=== PATIENT | female | born 1940 | race Caucasian/White ===

== ENCOUNTER → 2017-12-27 14:28 | Outpatient (CLI) | payer MEDICARE, SELFPAY ==
--- NOTE | 2017-12-27 | DI.RAD.S_ITS ---
PROCEDURE: XR CHEST 2V INDICATIONS: 77 year-old female with pneumonia symptoms. TECHNIQUE: 2 views of the chest were acquired. COMPARISON: [facility], , CHEST 2 VIEW, 11/03/2017, 13:03. [facility], CR, CHEST 2 VIEW, 04/30/2017, 14:47. [facility], CR, XR CHEST 1VW (PORTABLE), 08/29/2016, 12:28. FINDINGS: Surgical changes and devices: None. Lungs and pleura: No pleural effusions or pneumothorax. Lungs are now clear. Mediastinum: Large paraesophageal hiatal hernia is again noted. Heart size is normal. Bones and chest wall: No suspicious bony abnormalities. There is lumbar spine levoscoliosis. Soft tissues appear unremarkable. IMPRESSION: No acute cardiopulmonary disease. Large retrocardiac hiatal hernia as before. Dictated by: Kenyon Mckenna M.D. on 12/27/2017 at 14:52 Approved by: Kenyon Mckenna M.D. on 12/27/2017 at 14:53
== END ==
PROVIDERS: PCP Family Medicine; Visit Provider Family Medicine
DX: J18.9 Pneumonia, unspecified organism (principal); K44.9 Diaphragmatic hernia without obstruction or gangrene
CPT/HCPCS: 71046

== ENCOUNTER → 2019-03-17 10:05 | Outpatient (CLI) | payer MEDICARE, SELFPAY | PROVIDERS: PCP Family Medicine; Visit Provider Family Medicine | DX: S81.802A Unspecified open wound, left lower leg, initial encounter (principal); S80.12XA Contusion of left lower leg, initial encounter; Z79.02 Long term (current) use of antithrombotics/antiplatelets; G89.18 Other acute postprocedural pain; I25.2 Old myocardial infarction | CPT/HCPCS: 11043; 99203; 99212 ==

== ENCOUNTER → 2019-03-21 13:01 | Outpatient (CLI) | payer MEDICARE, SELFPAY | PROVIDERS: PCP Family Medicine; Visit Provider Family Medicine | DX: S81.802A Unspecified open wound, left lower leg, initial encounter (principal); Z79.02 Long term (current) use of antithrombotics/antiplatelets | CPT/HCPCS: 11042; 97607 ==

== ENCOUNTER 2019-03-22 02:07 | Emergency (ER) | payer MEDICARE, SELFPAY ==
[2019-03-22 02:13] VITALS: BP 167/75; PULSE 95; RESP 16; TEMP 36.5; O2SAT 94; BMI 27.3
--- NOTE | 2019-03-22 02:42 | ED.WOUNDLAC ---
HPI - Wound/Laceration General Chief Complaint: Wound/Laceration Stated Complaint: has wound care pump left leg, has problem Time Seen by Provider: 03/22/19 02:14 Source: patient Mode of arrival: ambulatory Limitations: no limitations History of Present Illness HPI narrative: Patient is 79-year-old female who presents with wound VAC concern. She says at midnight she noticed that the pump itself was filled with blood. She has a wound VAC on her left leg about a month ago she fell and injured her left leg hitting it on a stair. She is followed closely with wound care in [place]/she has no significant however redness swelling fever or pain. Wound vacs appears to be working. Paperwork says if filled with blood needs to be evaluated Related Data Allergies Allergy/AdvReac Type Severity Reaction Status Date / Time No Known Drug Allergies Allergy Unknown Unverified 11/03/17 11:50 prednisone AdvReac Mild JITTERY Unverified 11/03/17 11:50 FROM STEROIDS Review of Systems Review of Systems GENERAL: Denies chills,fever HEENT: Denies throat pain RESPIRATORY: Denies dyspnea, cough, wheezing CARDIOVASCULAR: Denies chest pain, palpitations GASTROINTESTINAL: Denies nausea, vomiting MUSCULOSKELETAL: Denies extremity pain, injury SKIN: No rash, no laceration, no pruritus NEUROLOGIC: Denies weakness, dizziness, headache, numbness 8 point review of systems is negative except for those stated above and HPI PFSH Medical History Hypertension (Acute) Social History (Updated 03/22/19 @ 02:47 by Polly Brown DO) Smoking Status: Never smoker substance use type: does not use Social History Smoking Status: Never smoker substance use type: does not use Exam Initial Vital Signs Initial Vital Signs: Vital Signs Temperature 97.7 F 03/22/19 02:13 Pulse Rate 95 H 03/22/19 02:13 Respiratory Rate 16 03/22/19 02:13 Blood Pressure 167/75 H 03/22/19 02:13 Pulse Oximetry 94 03/22/19 02:13 GENERAL: Well-appearing, well-nourished and in no acute distress. CARDIOVASCULAR: peripheral pulses in tact, cap refill <2 sec RESPIRATORY: No respiratory distress, speaks in full sentences without difficulty EXTREMITIES: Normal range of motion, no clubbing or edema. Neurovascularly intact NEUROLOGICAL: Cranial nerves II through XII grossly intact. Normal gait and speech. SKIN: The left leg wound VAC in place. Wound itself is non erythematous. Tubing does have some blood right at the wound. However as tubing goes up with the liquid becomes clear you can see through the tube. Some blood clots are noted. Course Vital Signs - 8 hr 03/22/19 02:13 Temperature 97.7 F Pulse Rate 95 H Respiratory Rate 16 Blood Pressure 167/75 H Pulse Oximetry 94 MDM - Wound/Laceration MDM Narrative Medical decision making narrative: Patient has a previously scheduled office visit with wound care tomorrow at 3:00 p.m.. At this time I recommend she follow up with them in regards to the wound VAC. Overall wound does not appear infected. Discharge Plan Departure Patient Disposition: Home Clinical Impression: Feared complaint without diagnosis Discharge Date/Time: 03/22/19 02:40 Interventions: ED Discharge Assessment Last Done: 03/22/19 02:40 Instructions: DI with Wound Drains Activity Restrictions/Additional Instructions: *You have been diagnosed with wound VAC encounter *What to do: At this time no significant abnormality noted with wound VAC. There is a small amount blood in the tubing. However the wound is not grossly bleeding. *Continue to take medications as directed *Follow up with your primary care provider in 2-3 days, please call wound care 1st thing in the morning and follow up as previously scheduled and tomorrow afternoon *Return to ER if you should have significant bleeding around the wound, vacuum seal has common done redness pain or any new, worsening or concerning symptoms Referrals: Michael Botello MD [Physician] - Denisa Blackburn MD [Primary Care Provider] -
== END 2019-03-22 02:40 | disposition home or self-care (01) ==
PROVIDERS: Emergency Provider Emergency Medicine; PCP Family Medicine
DX: Z71.1 Person with feared health complaint in whom no diagnosis is made (principal)
CPT/HCPCS: 99282; 99283

== ENCOUNTER → 2019-03-23 14:58 | Outpatient (CLI) | payer MEDICARE, SELFPAY | PROVIDERS: PCP Family Medicine; Visit Provider Family Medicine | DX: S80.812A Abrasion, left lower leg, initial encounter (principal) | CPT/HCPCS: 97607 ==

== ENCOUNTER → 2019-03-28 13:06 | Outpatient (CLI) | payer MEDICARE, SELFPAY | PROVIDERS: PCP Family Medicine; Visit Provider Family Medicine | DX: S81.802A Unspecified open wound, left lower leg, initial encounter (principal); Z79.02 Long term (current) use of antithrombotics/antiplatelets | CPT/HCPCS: 11042 ==

== ENCOUNTER 2019-04-05 13:55 | Emergency (ER) | payer MEDICARE, SELFPAY ==
[2019-04-05 14:08] VITALS: BP 156/77; PULSE 53; RESP 15; TEMP 36.3; O2SAT 97; BMI 27.1
--- NOTE | 2019-04-05 14:56 | ED.WOUNDLAC ---
HPI - Wound/Laceration <ROGER Romero - Last Filed: 04/05/19 21:22> General Chief Complaint: Wound/Laceration Stated Complaint: Open Wound on Left Ankle, Doesn't Look Good Time Seen by Provider: 04/05/19 14:39 Source: patient and family Mode of arrival: ambulatory Limitations: no limitations History of Present Illness HPI narrative: 79-year-old female with a history of a chronic wound to her left lateral ankle that she had last year during a fall. She has had a wound VAC inserted into the wound and was recently removed a week ago. She missed her wound clinic appointment on Wednesday and is concerned that the wound is starting to look a little worse. She states that there is a crust within the wound and was unsure if she should come here because with it. Patient denies any fevers, chills, headache, chest pain, shortness of breath, abdominal pain, worsening erythema, confusion, or other concerning symptoms. Related Data Allergies Allergy/AdvReac Type Severity Reaction Status Date / Time No Known Drug Allergies Allergy Unknown Verified 04/05/19 14:14 prednisone AdvReac Mild JITTERY Verified 04/05/19 14:14 FROM STEROIDS Review of Systems <ROGER Romero - Last Filed: 04/05/19 21:22> Review of Systems Narrative: REVIEW OF SYSTEMS: GENERAL: Denies fever or chills. HENT: Denies head trauma. EYE: Denies double vision or vision loss. CARDIOVASCULAR: Denies syncope. MUSCULOSKELETAL: Denies weakness, or deformities. INTEGUMENTARY: Complains of chronic wound to left ankle, see HPI. NEURO: Denies numbness or tingling. PFSH <ROGER Romero - Last Filed: 04/05/19 21:22> Medical History Hypertension (Acute) Social History Smoking Status: Never smoker substance use type: does not use Social History Smoking Status: Never smoker substance use type: does not use Exam <RGOER Romero - Last Filed: 04/05/19 21:22> Initial Vital Signs Initial Vital Signs: Vital Signs Temperature 97.4 F L 04/05/19 14:08 Pulse Rate 53 L 04/05/19 14:08 Respiratory Rate 15 04/05/19 14:08 Blood Pressure 156/77 H 04/05/19 14:08 Pulse Oximetry 97 04/05/19 14:08 PHYSICAL EXAMINATION: GENERAL: Well groomed, alert, and cooperative. Answers questions promptly and appropriately. Vital signs noted. HENT: Normocephalic, atraumatic. RESPIRATORY: Normal respiratory rate, trachea midline, airway patent. No stridor, nasal flaring or accessory muscle use. MUSCULOSKELETAL: Normal gait and coordination. Equal tone and mass bilaterally. EXTREMITIES: CMS intact. Moves all extremities. SKIN: Warm, dry, soft, appropriate color for ethnicity. 4cm x 4cm annular wound to lateral side of left ankle. This appears very chronic in nature, yellowish crust is noted on the inside of the wound without eschar. No surrounding erythema, no increased temperature, no pus see drainage. NEURO: Alert and Oriented X 3. Good coordination. PSYCH: Appropriate affect and mood. <Desiree Kc MD - Last Filed: 04/06/19 07:12> Initial Vital Signs Initial Vital Signs: Vital Signs Temperature 97.4 F L 04/05/19 14:08 Pulse Rate 53 L 04/05/19 14:08 Respiratory Rate 15 04/05/19 14:08 Blood Pressure 156/77 H 04/05/19 14:08 Pulse Oximetry 97 04/05/19 14:08 Course <ROGER Romero - Last Filed: 04/05/19 21:22> Course Course Narrative: Wound was dressed with bacitracin and gauze. Conversation was had with patient about the importance of wound care follow-up. Orders Ordered: Discontinued Medications Bacitracin (Bacitracin) 1 applic TOP NOW ONE Stop: 04/05/19 15:05 Last Admin: 04/05/19 15:29 Dose: 1 applic Documented by: KBROTEM Vital Signs Vital signs: Vital Signs - 8 hr 04/05/19 14:08 Temperature 97.4 F L Pulse Rate 53 L Respiratory Rate 15 Blood Pressure 156/77 H Pulse Oximetry 97 <Desiree Kc MD - Last Filed: 04/06/19 07:12> Orders Ordered: Discontinued Medications Bacitracin (Bacitracin) 1 applic TOP NOW ONE Stop: 04/05/19 15:05 Last Admin: 04/05/19 15:29 Dose: 1 applic Documented by: FEDERICO Vital Signs Vital signs: Vital Signs - 8 hr 04/05/19 14:08 Temperature 97.4 F L Pulse Rate 53 L Respiratory Rate 15 Blood Pressure 156/77 H Pulse Oximetry 97 [facility] - Wound/Laceration <ROGER Romero - Last Filed: 04/05/19 21:22> Medical Records Attestation: I reviewed the patient's medical records. Lab Data Attestation: I reviewed the patient's lab results. [facility] Narrative Medical decision making narrative: This is a chronic wound that patient has been treated for for over a year. While the recently remove the wound VAC, there appears to be no sign of infection such as erythema, but he discharge, or increased warmth. The wound bed has changed to a to a crusty yellow without his eschar, I suspect that changing color concerned the patient. Patient has a scheduled wound care appointment within the coming week. Strict return precautions given and follow-up instructions discussed. Discharge Plan Departure Patient Disposition: Home Clinical Impression: Chronic wound of extremity Discharge Date/Time: 04/05/19 15:36 Activity Restrictions/Additional Instructions: Thank you for entrusting me with your care today. As discussed, does not appear that your wound is infected. Part of the changes your seeing his because the wound is no longer connected to wound VAC. Please follow-up with the wound care clinic as planned as soon as possible. Monitor for signs of infection such as pus, increasing redness, increasing heat, fevers, chills, dizziness, chest pain, shortness of breath, or syncope-if these symptoms occur please return to the emergency department immediately. Referrals: Denisa Blackburn MD [Primary Care Provider] -
[2019-04-05] MEDS: BACITRACIN OINT 0.9 GM PCKT 1 APPLIC TOP (15:29)
--- NOTE | 2019-04-05 15:33 | PC.NURSE ---
Pt has a chronic wound that she is being treated at wound care for. Pt concerned that it didn't look good. No drainage noted.
== END 2019-04-05 15:36 | disposition home or self-care (01) ==
PROVIDERS: Emergency Provider Nurse Practitioner; PCP Family Medicine
DX: S91.002A Unspecified open wound, left ankle, initial encounter (principal)
CPT/HCPCS: 99283

== ENCOUNTER → 2019-04-11 13:34 | Outpatient (CLI) | payer MEDICARE, SELFPAY | PROVIDERS: PCP Family Medicine; Visit Provider Family Medicine | DX: S81.802A Unspecified open wound, left lower leg, initial encounter (principal); Z79.02 Long term (current) use of antithrombotics/antiplatelets | CPT/HCPCS: 11042 ==

== ENCOUNTER → 2019-04-18 13:15 | Outpatient (CLI) | payer MEDICARE, SELFPAY | PROVIDERS: PCP Family Medicine; Visit Provider Family Medicine | DX: S81.802A Unspecified open wound, left lower leg, initial encounter (principal) | CPT/HCPCS: 15271; 29580; 87070; 87075; 87205; 99213; Q4187 ==

== ENCOUNTER → 2019-04-20 15:10 | Outpatient (CLI) | payer MEDICARE, SELFPAY | PROVIDERS: PCP Family Medicine; Visit Provider Family Medicine | DX: R60.0 Localized edema (principal) | CPT/HCPCS: 29580; 99213 ==

== ENCOUNTER → 2019-04-25 11:46 | Outpatient (CLI) | payer MEDICARE, SELFPAY | PROVIDERS: PCP Family Medicine; Visit Provider Family Medicine | DX: S81.802A Unspecified open wound, left lower leg, initial encounter (principal); Z79.02 Long term (current) use of antithrombotics/antiplatelets | CPT/HCPCS: 11042 ==

== ENCOUNTER → 2019-05-02 13:36 | Outpatient (CLI) | payer MEDICARE, SELFPAY | PROVIDERS: PCP Family Medicine; Visit Provider Family Medicine | DX: I87.2 Venous insufficiency (chronic) (peripheral) (principal); L97.828 Non-pressure chronic ulcer of other part of left lower leg with other specified severity | CPT/HCPCS: 11042 ==

== ENCOUNTER → 2019-05-12 13:27 | Outpatient (CLI) | payer MEDICARE, SELFPAY | PROVIDERS: PCP Family Medicine; Visit Provider Family Medicine | DX: S81.802A Unspecified open wound, left lower leg, initial encounter (principal); R60.0 Localized edema | CPT/HCPCS: 99213 ==

== ENCOUNTER → 2019-05-19 14:25 | Outpatient (CLI) | payer MEDICARE, SELFPAY | PROVIDERS: PCP Family Medicine; Visit Provider Family Medicine | DX: I87.2 Venous insufficiency (chronic) (peripheral) (principal); R60.0 Localized edema; Z79.02 Long term (current) use of antithrombotics/antiplatelets; L97.821 Non-pressure chronic ulcer of other part of left lower leg limited to breakdown of skin | CPT/HCPCS: 11042 ==

== ENCOUNTER → 2019-05-26 16:13 | Outpatient (CLI) | payer MEDICARE, SELFPAY | PROVIDERS: PCP Family Medicine; Visit Provider Family Medicine | DX: I87.2 Venous insufficiency (chronic) (peripheral) (principal); L97.829 Non-pressure chronic ulcer of other part of left lower leg with unspecified severity; Z79.02 Long term (current) use of antithrombotics/antiplatelets | CPT/HCPCS: 97597 ==

== ENCOUNTER → 2019-06-02 12:55 | Outpatient (CLI) | payer MEDICARE, SELFPAY | PROVIDERS: PCP Family Medicine; Visit Provider Family Medicine | DX: I87.2 Venous insufficiency (chronic) (peripheral) (principal); Z79.02 Long term (current) use of antithrombotics/antiplatelets; L97.829 Non-pressure chronic ulcer of other part of left lower leg with unspecified severity | CPT/HCPCS: 97597 ==

== ENCOUNTER → 2019-06-09 13:07 | Outpatient (CLI) | payer MEDICARE, SELFPAY | PROVIDERS: PCP Family Medicine; Visit Provider Family Medicine | DX: I87.2 Venous insufficiency (chronic) (peripheral) (principal); R60.0 Localized edema; Z79.02 Long term (current) use of antithrombotics/antiplatelets; L97.821 Non-pressure chronic ulcer of other part of left lower leg limited to breakdown of skin | CPT/HCPCS: 97597 ==

== ENCOUNTER → 2019-06-16 13:09 | Outpatient (CLI) | payer MEDICARE, SELFPAY | PROVIDERS: PCP Family Medicine; Visit Provider Family Medicine | DX: I87.2 Venous insufficiency (chronic) (peripheral) (principal); L97.821 Non-pressure chronic ulcer of other part of left lower leg limited to breakdown of skin; R60.0 Localized edema; Z79.02 Long term (current) use of antithrombotics/antiplatelets | CPT/HCPCS: 97597 ==

== ENCOUNTER → 2019-06-30 14:00 | Outpatient (CLI) | payer MEDICARE, SELFPAY | PROVIDERS: PCP Family Medicine; Visit Provider Family Medicine | DX: I87.2 Venous insufficiency (chronic) (peripheral) (principal); L97.821 Non-pressure chronic ulcer of other part of left lower leg limited to breakdown of skin; Z79.02 Long term (current) use of antithrombotics/antiplatelets | CPT/HCPCS: 97597 ==

== ENCOUNTER → 2019-07-06 14:06 | Outpatient (CLI) | payer MEDICARE, SELFPAY | PROVIDERS: PCP Family Medicine; Visit Provider Family Medicine | DX: I87.2 Venous insufficiency (chronic) (peripheral) (principal); L97.829 Non-pressure chronic ulcer of other part of left lower leg with unspecified severity; Z79.02 Long term (current) use of antithrombotics/antiplatelets; D53.9 Nutritional anemia, unspecified | CPT/HCPCS: 99212 ==

== ENCOUNTER 2019-12-25 15:49 | Inpatient (IN) | payer MEDICARE, SELFPAY ==
[2019-12-25] VITALS (16 sets, daily range): BP systolic 143–225; BP diastolic 66–109; PULSE 52–87; RESP 15–18; TEMP 35.9–37.1; O2SAT 95–99; BMI 25.0
--- NOTE | 2019-12-25 15:54 | DI.CT.S_ITS ---
PROCEDURE: CT HEAD/BRAIN WO CON INDICATIONS: HTN emergency TECHNIQUE: Noncontrast 4.5 mm thick angled axial sections acquired from the foramen magnum to the vertex, with coronal and sagittal reformats. For radiation dose reduction, the following was used: automated exposure control, adjustment of mA and/or kV according to patient size. COMPARISON: [facility], CT, HEAD WITHOUT CONTRAST, 12/12/2012, 10:02. FINDINGS: Image quality: Excellent. CSF spaces: Basal cisterns are patent. No extra-axial fluid collections. The ventricles are symmetric in size and shape. Brain: No intracranial bleeds or masses. There is cerebral volume loss for age, with resultant ventricular and sulcal prominence. There are periventricular and deep white matter chronic small vessel ischemic changes. There is intracranial internal carotid artery atherosclerosis. Skull and face: Calvarium and visualized facial bones appear intact, without suspicious lesions. Sinuses: Visualized sinuses and mastoids are clear. IMPRESSION: Moderate microvascular atherosclerotic change in the deep white matter regions are, no sign of hemorrhage or stroke. Dictated by: Bakari Helms M.D. on 12/25/2019 at 16:24 Approved by: Bakari Helms M.D. on 12/25/2019 at 16:25
--- NOTE | 2019-12-25 15:54 | DI.RAD.S_ITS ---
PROCEDURE: XR CHEST 1V INDICATIONS: HTN Emergency TECHNIQUE: One view of the chest was acquired. COMPARISON: [facility], CR, XR CHEST 2V, 12/27/2017, 14:31. FINDINGS: Surgical changes and devices: None. Lungs and pleura: Interstitial prominence is identified within the perihilar regions, which has developed in the interim. There is mild elevation of the right diaphragm, which is similar to the prior study. No pneumothorax or large effusion is identified. Mediastinum: Mediastinal contours appear normal. Heart size is normal. Soft tissue density within the retrocardiac region probably represents a hiatal hernia. Bones and chest wall: No suspicious bony lesions. Degenerative changes of the shoulders and spine are not adequately characterize. S-shaped scoliosis of the thoracic spine is noted. Overlying soft tissues appear unremarkable. IMPRESSION: 1. Developing pulmonary edema versus less likely interstitial pneumonia. Please correlate clinically. 2. Hiatal hernia. Dictated by: Geoff Dumont M.D. on 12/25/2019 at 15:32 Approved by: Geoff Dumont M.D. on 12/25/2019 at 15:40
[2019-12-25 16:19] LABS: Add Manual Diff / Slide Review NO; Basophils Absolute Auto 100 /uL (0-100); Eosinophils Absolute Auto 200 /uL (0-450); Eosinophils Percent Auto 2.6 % (2-4); Hematocrit 41.4 % (36-46); Hemoglobin 14.3 g/dL (12.0-16.0); Lymphocytes Absolute Auto 1600 /uL (1100-4500); Lymphocytes Percent Auto 18.1 % (25-40); Mean Corpuscular HGB Conc 34.5 % (30-36); Mean Corpuscular Hemoglobin 36.2 PG (26-34); Mean Corpuscular Volume 104.9 fL (80-100); Monocytes Absolute Auto 700 /uL (0-900); Neutrophils Absolute Auto 6200 /uL (1500-7000); Neutrophils Percent Auto 70.3 % (50-75); Platelet Count 230 X10^3/uL (150-400); Red Blood Cell Count 3.95 X10^6/uL (4.0-5.2); Red Cell Distribution Width 13.2 % (11.6-14.8); White Blood Cell Count 8.8 X10^3/uL (4.5-11.0)
[2019-12-25 16:40] LABS: Alanine Aminotransferase 22 IU/L (<35); Albumin 4.5 g/dL (3.5-5.0); Albumin Globulin Ratio 1.3 (1.0-2.8); Alkaline Phosphatase 92 U/L (38-126); Aspartate Aminotransferase 40 IU/L (14-36); Bilirubin Total 0.8 mg/dL (0.2-1.3); Blood Urea Nitrogen 25 mg/dL (7-17); Calcium 9.6 mg/dL (8.4-10.2); Carbon Dioxide 25 mmol/L (22-32); Chloride 108 mmol/L (98-107); Creatine Kinase 28 U/L (30-135); Estimated Glomerular Filt Rate > 60.0 mL/min (>60); Globulin 3.4 g/dL (1.7-4.1); Glucose 86 mg/dL (80-110); Lipase 94 U/L (23-300); Sodium 140 mmol/L (137-145); Total Protein 7.9 g/dL (6.3-8.2)
--- NOTE | 2019-12-25 16:40 | ED_ITS ---
HPI - General Adult General Chief complaint: Hypertension Stated complaint: RUTHIE HIGH BLOOD PRESSURE Time Seen by Provider: 12/25/19 15:53 Source: patient Mode of arrival: Ambulatory Limitations: no limitations History of Present Illness HPI narrative: 79-year-old female nonsmoker with history of hypertension, hypert hyroid and GERD presents with her in the chief complaint severely elevated blood pressure with severe headache, fatigue and some nausea over the past few days. She had been seen and evaluated by her primary care provider this afternoon and was sent here for treatment and possible admission. She denies any chest pain or shortness of breath. She denies any focal neurologic findings such as numbness, tingling or weakness. She denies any significant medication or dietary change Onset (ago): day(s) Location: head Quality: aching Pain Consistency: constant Relieving factors: none Exacerbating factors: none Associated symptoms: headaches and nausea/vomiting Treatments prior to arrival: none Related Data Home Medications Medication Instructions Recorded Confirmed clopidogrel [Plavix] 75 mg PO BEDTIME 12/25/19 12/25/19 esomeprazole magnesium [Nexium] 20 mg PO BID 12/25/19 12/25/19 levothyroxine 75 mcg PO BEDTIME 12/25/19 12/25/19 lisinopril 20 mg PO BID 12/25/19 12/25/19 nefazodone 50 mg PO BID 12/25/19 12/25/19 potassium chloride 10 meq PO QAM 12/25/19 12/25/19 Allergies Allergy/AdvReac Type Severity Reaction Status Date / Time niacin Allergy Severe Flushing Verified 12/25/19 16:50 prednisone AdvReac Mild JITTERY Verified 12/25/19 16:50 FROM STEROIDS Review of Systems Constitutional Constitutional: Denies chills, Denies fatigue, Denies fever(s), Denies frequent falls, Reports headache(s), Denies lethargy and Denies weakness Eyes Eyes: Denies change in vision, Denies eye discharge, Denies irritation and Denies loss of vision ENT Ears, Nose, Mouth, and Throat: Denies change in voice, Denies dizziness, Reports headache(s), Denies neck pain, Denies sore throat and Denies throat swelling Cardiovascular Cardiovascular: Denies chest pain, Denies irregular heart rhythm, Denies lightheadedness, Denies palpitations, Denies dyspnea, Denies dyspnea on exertion and Denies orthopnea Respiratory Respiratory: Denies cough, Denies dyspnea, Denies dyspnea on exertion and Denies wheezing Gastrointestinal Gastrointestinal: Denies abdominal pain, Denies change in bowel habits, Denies diarrhea, Reports nausea and Denies vomiting Genitourinary Genitourinary: Denies hematuria, Denies flank pain, Denies urinary incontinence and Denies urinary urgency Musculoskeletal Musculoskeletal: Denies back pain, Denies muscle weakness, Denies neck pain, Denies numbness and Denies tingling Integumentary/Breasts Skin/Breast: Denies pruritus, Denies erythema, Denies rash and Denies wounds Neurologic Neurologic: Denies behavioral changes, Denies confusion, Denies dizziness, Denies frequent falls, Reports headache(s), Denies loss of vision, Denies numbness, Denies tingling and Denies weakness Psychiatric Psychiatric: Denies anxiety, Denies behavioral changes, Denies confusion, Denies depression, Denies homicidal ideation and Denies suicidal ideation Endocrine Endocrine: Denies fatigue, Denies flushing and Denies palpitations Hematologic/Lymphatic Hematologic/Lymphatic: Denies easy bruising Allergic/Immunologic Allergic/Immunologic: Denies urticaria, Denies throat swelling and Denies wheezing Patient History Medical History Hypertension (Acute) Social History Smoking Status: Never smoker substance use type: does not use Smoking Status: Never smoker alcohol intake frequency: holidays/special occasions only Substance Use Type: does not use Exam Narrative Exam Narrative: GENERAL: [79] year old patient appears stated age. Well- nourished, well-developed patient, in mild distress. HEAD: Atraumatic. Normocephalic. EYES: Pupils equal round and reactive. Extraocular motions intact. No scleral icterus. No injection or drainage. ENT: Nose without bleeding, purulent drainage. Throat without erythema, tonsillar hypertrophy or exudate. Airway patent. NECK: Trachea midline. Non tender CARDIOVASCULAR: Regular rate and rhythm without murmurs, gallops, or rubs. RESPIRATORY: Clear to auscultation. Breath sounds equal bilaterally. No wheezes, rales, or rhonchi. GASTROINTESTINAL: Abdomen soft, non-tender, nondistended. EXTREMITIES: No edema or joint tenderness. BACK: Nontender without deformity or crepitance. No flank tenderness. NEURO: AOx3. SKIN: No rash or erythema of visible areas NIH Stroke Scale 1a. LOC: Patient is alert and keenly responsive (0) 1b. LOC Questions: Patient answers both LOC questions accurately (0) 1c. LOC Commands: Patient performs both tasks correctly (0) 2. Best Gaze: Normal (0) 3. Visual: No visual loss (0) 4. Facial palsy: Normal symmetrical movements (0) 5. Motor arm: No drift (0) 6. Motor leg: No drift (0) 7. Limb ataxia: Absent (0) 8. Sensory: Normal (0) 9. Best language: No aphasia; normal (0) 10. Dysarthria: Normal (0) 11. Extinction and inattention: No abnormality (0) NIHSS: 0 Initial Vital Signs Initial Vital Signs: Vital Signs Temperature 96.6 F L 12/25/19 15:53 Pulse Rate 63 12/25/19 15:53 Respiratory Rate 18 12/25/19 15:53 Blood Pressure 222/109 H 12/25/19 15:53 Pulse Oximetry 97 12/25/19 15:53 Course Course Course Narrative: Patient presents with significantly elevated blood pressure 220s over 109. Full course of labs and imaging ordered, labetalol 10 mg given and blood pressure continues to rise with symptoms worsening. At this point macro to pain drip ordered at 5 which reduces blood pressure into the mid 170s with resultant improvement in symptoms. Orders Ordered: ED Orders 12/25/19 15:54 CT head/brain wo con Stat XR chest 1V Stat EKG-12 Lead Stat 12/25/19 16:12 Complete Blood Count AUTO DIFF Stat Comprehensive Metabolic Panel Stat Lipase Stat Troponin & CK Cardiac Panel Stat Sodium Chloride (Normal Saline 0.9%) 1,000 mls @ 150 mls/hr IV CONT JENNY Last Admin: 12/25/19 16:47 Dose: 150 mls/hr Documented by: PATT Nicardipine HCl 25 mg/ Sodium (Chloride) 250 mls @ 50 mls/hr IV TITRATE JENNY; Protocol Last Admin: 12/25/19 17:39 Dose: 5 mg/hr, 50 mls/hr Documented by: PATT Discontinued Medications Acetaminophen (Tylenol) 975 mg PO NOW ONE Stop: 12/25/19 18:00 Last Admin: 12/25/19 18:07 Dose: 975 mg Documented by: PATT Labetalol HCl (Trandate) 10 mg IV NOW ONE Stop: 12/25/19 16:04 Last Admin: 12/25/19 16:47 Dose: 10 mg Documented by: PATT Vital Signs Vital signs: Vital Signs - 8 hr 12/25/19 15:53 12/25/19 16:05 12/25/19 16:45 Temperature 96.6 F L Pulse Rate 63 53 L 58 L Respiratory Rate 18 18 17 Blood Pressure 222/109 H Blood Pressure [Right Arm] 212/91 H 225/91 H Pulse Oximetry 97 98 98 12/25/19 16:47 12/25/19 17:00 12/25/19 17:27 Temperature Pulse Rate 52 L 57 L 58 L Respiratory Rate 15 Blood Pressure 207/98 H 194/84 H Blood Pressure [Right Arm] 201/85 H Pulse Oximetry 96 12/25/19 17:30 12/25/19 17:45 Temperature Pulse Rate 61 87 Respiratory Rate 18 16 Blood Pressure Blood Pressure [Right Arm] 189/84 H 183/75 H Pulse Oximetry 95 98 Medical Decision Making Lab Data Result diagrams: 12/25/19 16:12 12/25/19 16:12 Labs: Lab Results 12/25/19 12/25/19 Range/Units 16:12 16:12 WBC 8.8 (4.5-11.0) X10^3/uL RBC 3.95 L (4.0-5.2) X10^6/uL Hgb 14.3 (12.0-16.0) g/dL Hct 41.4 (36-46) % MCV 104.9 H (80-100) fL MCH 36.2 H (26-34) PG MCHC 34.5 (30-36) % RDW 13.2 (11.6-14.8) % Plt Count 230 (150-400) X10^3/uL Neut % (Auto) 70.3 (50-75) % Lymph % (Auto) 18.1 L (25-40) % [place] % (Auto) 8.0 (3-14) % Eos % (Auto) 2.6 (2-4) % Baso % (Auto) 1.0 (0-2) % Neut # (Auto) 6200 (9046-9178) /uL Lymph # (Auto) 1600 (6445-5552) /uL Barnwell # (Auto) 700 (0-900) /uL Eos # (Auto) 200 (0-450) /uL Baso # (Auto) 100 (0-100) /uL Sodium 140 (137-145) mmol/L Potassium 5.0 (3.4-5.1) mmol/L Chloride 108 H (98-107) mmol/L Carbon Dioxide 25 (22-32) mmol/L BUN 25 H (7-17) mg/dL Creatinine 0.49 L (0.52-1.04) mg/dL Estimated GFR > 60.0 (>60) mL/min BUN/Creatinine Ratio 51.0 H (6-22) Glucose 86 (80-110) mg/dL Calcium 9.6 (8.4-10.2) mg/dL Total Bilirubin 0.8 (0.2-1.3) mg/dL AST 40 H (14-36) IU/L ALT 22 (<35) IU/L Alkaline Phosphatase 92 (38-126) U/L Total Creatine Kinase 28 L (30-135) U/L CK-MB (CK-2) TNP CK-MB (CK-2) Rel Index TNP Troponin I 0.013 (0.01-0.034) ng/mL Total Protein 7.9 (6.3-8.2) g/dL Albumin 4.5 (3.5-5.0) g/dL Globulin 3.4 (1.7-4.1) g/dL Albumin/Globulin Ratio 1.3 (1.0-2.8) Lipase 94 (23-300) U/L Imaging Data CT scan - head: Radiologist's Impression: Brandi Crandall Con[place] 79 F [address] [address] [address] Scan Report Signed Patient: Brandi Crandall RMR#: [id number] : 1940Acct:[id number] Age/Sex: 79 / FDate of Service: 12/25/19 Loc: ED Accession Number: [id number] Procedure: CT head/brain wo con Ordering Provider: Jaiden Page D.O. PROCEDURE: CT HEAD/BRAIN WO CON INDICATIONS: HTN emergency TECHNIQUE: Noncontrast 4.5 mm thick angled axial sections acquired from the foramen magnum to the vertex, with coronal and sagittal reformats. For radiation dose reduction, the following was used: automated exposure control, adjustment of mA and/or kV according to patient size. COMPARISON: [facility], CT, HEAD WITHOUT CONTRAST, 12/12/2012, 10:02. FINDINGS: Image quality: Excellent. CSF spaces: Basal cisterns are patent. No extra-axial fluid collections. The ventricles are symmetric in size and shape. Brain: No intracranial bleeds or masses. There is cerebral volume loss for age, with resultant ventricular and sulcal prominence. There are periventricular and deep white matter chronic small vessel ischemic changes. There is intracranial internal carotid artery atherosclerosis. Skull and face: Calvarium and visualized facial bones appear intact, without suspicious lesions. Sinuses: Visualized sinuses and mastoids are clear. IMPRESSION: Moderate microvascular atherosclerotic change in the deep white matter regions are, no sign of hemorrhage or stroke. Dictated by: Bakari Helms M.D. on 12/25/2019 at 16:24 MDM Narrative Medical decision making narrative: Patient has hypertensive encephalopathy and not only did not improve with labetalol but actually worsened. Neck cardiac P drip ordered, patient will require hospitalization and our ICU for ongoing management and stabilization of her condition. Dr. Rhodes happy to accept Discharge Plan Departure Patient Disposition: Admitted As Inpatient Clinical Impression: Hypertension Qualifiers: Hypertension type: essential hypertension Qualified Code(s): I10 - Essential (primary) hypertension Admit Date/Time: 12/25/19 18:04 Admit Provider: Xavi Rhodes
[2019-12-25 16:41] LABS: HEMOLYSIS 96 (0-50)
[2019-12-25] MEDS: SODIUM CHLORIDE 0.9% 1,000 ML 150 ML IV (16:47)
[2019-12-25] MEDS: LABETALOL 20 MG/4 ML SYRINGE 10 MG IV (16:47)
[2019-12-25 16:51] LABS: Troponin I 0.013 ng/mL (0.01-0.034)
[2019-12-25] MEDS: NICARDIPINE 25 MG in SODIUM CHLORIDE 0.9% 240 ML 50 ML IV ×2 (17:39→22:24)
[2019-12-25] MEDS: ACETAMINOPHEN 325 MG TABLET 975 MG PO (18:07)
--- NOTE | 2019-12-25 19:49 | PM.HP.1 ---
History of Present Illness History of Present Illness Date Patient Seen: 12/25/19 Time Patient Seen: 19:49 Date of Onset of Symptoms: 12/04/19 Chief complaint: RUTHIE HIGH BLOOD PRESSURE Narrative: Patient is a 79-year-old white female patient of Dr. Blackburn who I am cross covering for who presented to her clinic today with headache. Apparently she has not been feeling well for around 3 weeks. She is not sure when she checked her blood pressure last. She noted about 3 weeks ago that she started having fatigue and just did not feel well. Has a hard time describing exactly what that means. She did not have a severe headache but had a low-grade headache. No fevers or chills. No chest pain. Has not had any dyspnea with exertion. Patient was seen by Dr. [facility] and apparently was diagnosed with a sinusitis. Patient really feels like she was having a hard time expressing how she has felt. Since that time she really has not felt any better. She is getting an increased headache. Bobby frontal. No visual symptoms. No nausea or vomiting. No numbness tingling or motor changes. Patient was seen in clinic today and found to have a blood pressure with diastolic 125 and systolic of 200+. Due to the fact that she was having symptoms and elevated blood pressure she was sent to the emergency room. She had been tried on labetalol and was unresponsive with continued significantly elevated blood pressure. That time she was started on a calcium channel heide drip and responded well. Has no other significant changes. Patient has a history of coronary artery disease. But has had no other significant changes or complaints. Otherwise is doing well. She has not had any previous history of stroke or other changes. Patient's past medical history is significant for: Hypertension, hyperlipidemia, depression, hypokalemia, hypothyroidism Past surgical history: Total hysterectomy with BSO secondary to bleeding, tonsillectomy and adenectomy, right total hip replacement 12/14/2013, carpal tunnel 2009, sinus surgery, vitrectomy x2. Social history. Nonsmoker occasional drinker. Single but in relationship , retired, family nearest is in [facility]. Also has family in [place]. Patient History Medical History Hypertension (Acute) Family & Social History Social History: household members none Prior Living Arrangements House Safety & Behavioral: Feels Safe in Current Yes Environment Been Physically Hurt or No Threatened By a Person Suicidal Ideation Description None Suicide Plan Description No Plan Tobacco & Substance use: Smoking Status Never smoker alcohol intake frequency holiday/special occasion Substance Use Type does not use Meds Home Medications and Allergies Home Medications Medication Instructions Recorded Confirmed Type clopidogrel [Plavix] 75 mg PO BEDTIME 12/25/19 12/25/19 History esomeprazole magnesium [Nexium] 20 mg PO BID 12/25/19 12/25/19 History levothyroxine 75 mcg PO BEDTIME 12/25/19 12/25/19 History lisinopril 20 mg PO BID 12/25/19 12/25/19 History nefazodone 50 mg PO BID 12/25/19 12/25/19 History potassium chloride 10 meq PO QAM 12/25/19 12/25/19 History Allergies Allergy/AdvReac Type Severity Reaction Status Date / Time niacin Allergy Severe Flushing Verified 12/25/19 16:50 prednisone AdvReac Mild JITTERY Verified 12/25/19 16:50 FROM STEROIDS Review of Systems Review of Systems ROS: Yes All systems reviewed with the patient and are negative except as otherwise documented Exam Vital Signs (past 8 hours): - 12/25/19 15:53 12/25/19 16:05 12/25/19 16:45 Temperature 96.6 F L Pulse Rate 63 53 L 58 L Respiratory Rate 18 18 17 Blood Pressure 222/109 H Blood Pressure [Right Arm] 212/91 H 225/91 H Pulse Oximetry 97 98 98 12/25/19 16:47 12/25/19 17:00 12/25/19 17:27 Temperature Pulse Rate 52 L 57 L 58 L Respiratory Rate 15 Blood Pressure 207/98 H 194/84 H Blood Pressure [Right Arm] 201/85 H Pulse Oximetry 96 12/25/19 17:30 12/25/19 17:45 12/25/19 18:09 Temperature Pulse Rate 61 87 74 Respiratory Rate 18 16 18 Blood Pressure Blood Pressure [Right Arm] 189/84 H 183/75 H 172/77 H Pulse Oximetry 95 98 99 12/25/19 18:25 Temperature Pulse Rate 74 Respiratory Rate 18 Blood Pressure Blood Pressure [Right Arm] 175/76 H Pulse Oximetry 98 Oxygen Delivery Method Room Air Narrative Exam Narrative: Alert interactive and smiling female in no acute distress. Tympanic membranes are normal. Pupils are equal small to light. Mucous membranes are moist. Neck supple without adenopathy JVD bruits. Lungs are clear. Heart regular rate and rhythm without murmurs clicks rubs or gallops. Abdomen is soft positive bowel sounds nontender. Extremities without cyanosis clubbing or edema. Patient has good pulses. Neurologic exam shows cranial nerves 2-12 are intact motor is 5/5. Reflexes 2+ and symmetric. [id number]-[id number] and hlpj-[id number] is normal I did not walk her. Psychologically she seems alert appropriate smiling and interactive. Objective Labs Result Diagrams: 12/25/19 16:12 12/25/19 16:12 Labs: Laboratory Results - last 24 hr 12/25/19 12/25/19 16:12 16:12 WBC 8.8 RBC 3.95 L Hgb 14.3 Hct 41.4 MCV 104.9 H MCH 36.2 H MCHC 34.5 RDW 13.2 Plt Count 230 Neut % (Auto) 70.3 Lymph % (Auto) 18.1 L [place] % (Auto) 8.0 Eos % (Auto) 2.6 Baso % (Auto) 1.0 Neut # (Auto) 6200 Lymph # (Auto) 1600 [place] # (Auto) 700 Eos # (Auto) 200 Baso # (Auto) 100 Sodium 140 Potassium 5.0 Chloride 108 H Carbon Dioxide 25 BUN 25 H Creatinine 0.49 L Estimated GFR > 60.0 BUN/Creatinine Ratio 51.0 H Glucose 86 Calcium 9.6 Total Bilirubin 0.8 AST 40 H ALT 22 Alkaline Phosphatase 92 Total Creatine Kinase 28 L CK-MB (CK-2) TNP CK-MB (CK-2) Rel Index TNP Troponin I 0.013 Total Protein 7.9 Albumin 4.5 Globulin 3.4 Albumin/Globulin Ratio 1.3 Lipase 94 Assessment & Plan Assessment & Plan narrative: hypertensive emergency. Blood pressure is significantly elevated with symptoms. Does not appear to have any other significant secondary issues thankfully. At this point is doing well on nicardipine drip. Will continue. Goal 160s to 170s. Will continue this through the night and re-evaluate in a.m.. Hopefully at that point we can wean down and off and start a changed p.o. process. Patient understands goals and questions answered. Headache CT scan is unremarkable. Probably secondary to hypertension. No evidence of neurologic change. Will watch this closely with neurologic checks Q shift and tramadol for pain. Will see how she does.. History of gastritis. Will continue PPI. Hyperlipidemia. Will continue usual statin. History of coronary artery disease appears stable at this time. Normal EKG no symptoms will follow. Code status. Long discussion with patient. She has been full code. Still has some questions but at this point will continue full code status and she can discuss with her usual primary care about possible concerns. Patient is comfortable with this. Disposition. Hopefully will have completely controlled within the next 24-48 hours on oral medicines like to see how she does. 45 minutes spent with patient and coordinating care Quality VTE Deep Vein Thrombosis/Pulmonary Embolism Present on Admission: No
[2019-12-25] MEDS: ROSUVASTATIN 10 MG TABLET 20 MG PO (20:52)
[2019-12-25] MEDS: TRAMADOL 50 MG TABLET PO (20:52)
[2019-12-25] MEDS: PANTOPRAZOLE 20 MG TABLET PO (20:53)
[2019-12-25] MEDS: LEVOTHYROXINE 75 MCG TABLET PO (22:14)
[2019-12-25] MEDS: NEFAZODONE 100 MG TABLET 50 MG PO (22:14)
[2019-12-26] VITALS (17 sets, daily range): BP systolic 123–169; BP diastolic 59–107; PULSE 55–70; RESP 11–24; TEMP 36–36.6; O2SAT 92–97
[2019-12-26] MEDS: TRAMADOL 50 MG TABLET PO ×2 (02:46→10:21)
[2019-12-26 05:11] LABS: BUN Creatinine Ratio 33.3 (6-22); Blood Urea Nitrogen 15 mg/dL (7-17); Calcium 9.1 mg/dL (8.4-10.2); Carbon Dioxide 29 mmol/L (22-32); Chloride 105 mmol/L (98-107); Estimated Glomerular Filt Rate > 60.0 mL/min (>60); Glucose 90 mg/dL (80-110); HEMOLYSIS < 15 (0-50); Potassium 3.4 mmol/L (3.4-5.1); Sodium 138 mmol/L (137-145)
--- NOTE | 2019-12-26 06:42 | PC.NURSE ---
Tobacco Stripper Note-Patient oriented x4, fatigued and c/o headache for which Tramadol was given per prn. Nicardipine gtt infusing at 2.5mg/hr most of the night, BP 140s/70s to 160s/90s, see vital trends. SR/SA, placed on 2L NC to keep O2 >92%, denies dyspnea, but does have intermittent dry cough, lung sounds dim but clear. Up to BSC voiding frequently with urgency, urine is clear yellow, c/o burning and itching will obtain UA if indicated.
--- NOTE | 2019-12-26 08:50 | DI.US.S_ITS ---
PROCEDURE: US RENAL COMPLETE INDICATIONS: HYPERTENSIVE CRISIS TECHNIQUE: Real-time scanning was performed of the kidneys and bladder, with image documentation. COMPARISON: None. FINDINGS: Kidneys: Kidneys are normal in size. Right kidney measures 9.3 cm long; left kidney measures 9.8 cm long. Right renal cortical thickness is 2.2 cm; left renal cortical thickness is 1.5 cm. Renal cortical echotexture is normal. No hydronephrosis or nephrolithiasis. No suspicious solid mass lesions, and there is a simple appearing 3.4 cm right renal cortical cyst. Bladder: Pre-void bladder volume is 101 mL. Miscellaneous: No free pelvic fluid. IMPRESSION: Normal appearance of the kidneys, incidental note is made of a right renal cyst measuring 3.4 cm in maximal dimension. No solid mass involving the kidneys is found. Dictated by: Bakari Helms M.D. on 12/26/2019 at 10:19 Approved by: Bakari Helms M.D. on 12/26/2019 at 10:21
[2019-12-26 09:33] LABS: Bacteria Urine None Seen; RBC Urine None Seen (0-5/HPF); WBC Urine None Seen (0-5/HPF)
[2019-12-26 09:52] LABS: Appearance Urine UA CLEAR; Bilirubin Urine UA NEGATIVE (NEGATIVE); Color Urine UA YELLOW; Glucose Urine UA NEGATIVE (Negative); Ketones Urine UA NEGATIVE (NEGATIVE); Leukocyte Esterase Urine UA NEGATIVE (NEGATIVE); Nitrite Urine UA NEGATIVE (Negative); Occult Blood Urine UA NEGATIVE (Negative); Protein Urine UA NEGATIVE (Negative); Specific Gravity Urine UA 1.015 (1.000-1.035); Urobilinogen Urine UA 0.2 E.U./dL (0.2)
[2019-12-26 10:01] LABS: Culture Indicated Urine Cult Not Indicated; Urine Comments Microscopic Normal
[2019-12-26] MEDS: METOPROLOL ER 25 MG TABLET PO ×2 (10:20→21:11)
[2019-12-26] MEDS: SODIUM CHLORIDE 0.9% FLUSH 10 ML IV ×2 (10:20→22:22)
[2019-12-26] MEDS: CLOPIDOGREL 75 MG TABLET PO (10:20)
[2019-12-26] MEDS: lisinopriL 20 MG TABLET PO ×2 (10:20→21:10)
[2019-12-26] MEDS: PANTOPRAZOLE 20 MG TABLET PO ×2 (10:21→21:12)
[2019-12-26] MEDS: NEFAZODONE 100 MG TABLET 50 MG PO ×2 (10:22→21:10)
[2019-12-26 11:45] LABS: COVID19 -Nasal RAPID Negative (Negative)
--- NOTE | 2019-12-26 12:40 | PT.IIE ---
Current Diagnoses Essential (primary) hypertension (12/25/19) Medical History (Last Reviewed 12/25/19 @ 19:59 by Xavi Rhodes MD) Hypertension (Acute) Physical Therapy Inpatient Evaluation/Re-Eval M1 PT/OT-IP Prior Functional Status Start: 12/26/19 10:05 Freq: NEEDED Status: Active Protocol: Document 12/26/19 12:16 AW (Rec: 12/26/19 12:40 AW [email or web address]) Medical Review Prior Functional Status Medical History Reviewed Yes Communication WNL Mobility and Gait Pt states she is an independent ambulator but uses a SPC occasionally. I should probably use it more. 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 She has a friend and a significant other who help her with shopping and driving to appointment. Social History Household Members none Living Arrangements House Number of Floors (Floors) 3 or More Floors Number of Stairs To Enter/Railing? 3 SARA through garage with bilateral rails. She enters on the main level with living room, kitchen, dining room, guest room, and laundry. She climbs 15 stairs with right rail ascending to her bedroom/ bathroom. She states she rarely goes downstairs to the basement. Home Environment High Toilet,Tub/Shower Home Equipment Straight Cane,Shower Seat with Backrest,Automotive Design Layout Drafter,Grab Bars In Shower Additional Social History Comment Pt has daughters who live in the [facility] area and a son who lives in [place]. She states she is at a crossroads and knows she needs to sell her house. It's too much house for me now. She has considered moving to a jail setting near her daughters. She has also considered moving in with her significant other. M2 PT-IP Current Condition Start: 12/26/19 10:05 Freq: NEEDED Status: Active Protocol: Document 12/26/19 12:16 AW (Rec: 12/26/19 12:40 AW [email or web address]) Physical Therapy Current Condition Current Condition Evaluation Date 12/26/19 Treatment Diagnosis headache, hypertensive emergency, difficulty in walking Onset Date 12/25/19 Precautions Other Precautions Monitor BP M3 PT-IP Subjective Start: 12/26/19 10:05 Freq: NEEDED Status: Active Protocol: Document 12/26/19 12:16 AW (Rec: 12/26/19 12:40 AW [email or web address]) Subjective Physical Therapy Visit Type Type Initial Evaluation Visit Start Time 11:43 Visit Stop Time 12:13 Total Visit Minutes 30 Physical Therapy Visit Comments Patient Comments Pt is willing to participate with PT Patient Goals Pt hopes to return home Therapy Pain Assessment Pain When Pain Assessed At Rest Pain Present Pain Present Pain Reported Location headache Intensity 5 Description Aching,Tightness Pain Behaviors Facial Grimacing,Holding Area Pain Management Techniques Distraction M4 PT-IP Mobility and Gait Start: 12/26/19 10:05 Freq: NEEDED Status: Active Protocol: Document 12/26/19 12:16 AW (Rec: 12/26/19 12:40 AW [email or web address]) PT-Bed Mobility Assessment Supine to Sit Supine to Sit Standby Assistance Scooting Scooting to Edge of Bed Standby Assistance PT-Transfer Assessment Equipment Transfer Assistive Device Gait Belt Orthotic/Prosthetic Devices or Brace: No Transfers Transfer Destination Chair,Toilet Transfer Technique pt ambulated without and with FWW Transfer Ability Level of Assist Standby Assistance,Use of Upper Extremities Comments Mobility Comments Supine BP was 159/74. Pt completed supine to sit SBA with HOB elevated ~20 degrees and sat EOB. She completed sit to stand and ambulated without AD to the toilet where she transferred to and from with use of grab bars for support SBA. She then agreed to ambulate in the halls. After gait assessment, pt returned to the room and transferred to the chair where she was positioned with call light and lunch tray within reach. Pt verbalized agreement to use call light for mobility needs. Gait Assessment Gait Gait Assistance Required: Standby Assistance,Contact Guard Assist Distance (Feet) 120 Assistive Devices Assistive Device None,Gait Belt,Front Wheeled Walker Orthotic/Prosthetic Devices or Brace: No Gait Deviations General Gait Pattern Antalgic,Decreased Stride Length,Decreased Feet Clearance,Flexed Trunk,Wide Based Gait Factors Limiting Gait Function Factors Limiting Gait Function Decreased Activity Tolerance, Decreased Strength,Pain,Poor Balance,Poor Safety Awareness Comments Gait Comments Pt ambulated without AD in the halls requiring SBA to occasional CGA due to unsteadiness. On return to the room, pt trialed gait with FWW which she acknowlegded felt safer to her. With FWW, she required SBA. Pt states she had a R JEVON ~5 years ago and has had recent pain which she attributes to bursitis since injections to the bursa have been effective at managing her pain. Stair Climbing Assessment Comments Stair Climbing Comments Not assessed. PT-Balance Assessment Sitting Balance and Reactions Static Sitting Balance Ability Normal Dynamic Sitting Balance Ability Normal Standing Balance and Reactions Static Standing Balance Ability Good Dynamic Standing Balance Ability Fair Device Used with and without FWW Balance Tests Single Limb Standing 3 sec left; 1 sec right M5 PT-IP Objective Assessments Start: 12/26/19 10:05 Freq: NEEDED Status: Active Protocol: Document 12/26/19 12:16 AW (Rec: 12/26/19 12:40 AW [email or web address]) Orientation Orientation/Cognition Level of Alertness Alert Orientation Name,Day of Week,Place, Situation Language Function Ability No Deficits Noted Safety Awareness Decreased Safety Awareness Memory Description No Deficits Noted Gross Range of Motion Lower Extremity ROM Assessment Within Functional Limits Strength Lower Extremity Strength Assessment Bilaterally Impaired Hip L 4/5; R 3+/5 due to pain Knee B 4/5 Ankle B4+/5 Coordination Assessment Gross Coordination Gross Coordination WNL Sensation Assessment Sensation Gross Sensation WNL Muscle Tone Muscle Tone WNL Yes Other Assessments Other Other Assessments Occulomotor exam revealed difficulty with tracking and with convergence (left eye more affected than right). Pt denied dizziness. M6 PT-IP Treatment Start: 12/26/19 10:05 Freq: NEEDED Status: Active Protocol: Document 12/26/19 12:16 AW (Rec: 12/26/19 12:40 AW [email or web address]) Physical Therapy Treatment Education Education Provided Safety Other Treatments Other Treatment Performed Provided education on role of PT, plan of care, and rationale for selection of assistive device. M7 PT-IP Assessment and Plan Start: 12/26/19 10:05 Freq: NEEDED Status: Active Protocol: Document 12/26/19 12:16 AW (Rec: 12/26/19 12:40 AW [email or web address]) PT Summary Assessment and Plan Potential Rehabilitation Potential Good Status of Condition at Evaluation Evolving Summary Impairments Pain,Strength,Balance,Bed Mobility,Transfers,Gait, Activity Tolerance Assessment Summary Nicole is a 79 yo woman seen for PT evaluation after being admitted with hypertensive emergency (SBP >220). At baseline, she is functionally independent and lives alone. On evaluation, BP was stable 157/74 - 159/74 before and after gait activities. She required SBA for transfers and ambulation with assistive device, CGA for ambulation without AD. Gait was characterized by wide stance and she frequently reached for furniture and gaona to steady herself. Pt would benefit from continued gait assessment and training, possibly with SPC in order to increase her independence and safety. Pt states she was planning to begin outpatient PT just before stay home stay healthy order and that she would be willing to consider starting therapy now. She would benefit from outpatient PT to address balance and gait disturbances . Goals Bed Mobility Goal Independent Transfer Goal Independent,Cane,Front Wheeled Walker Gait Goal Independent,Cane,Front Wheel Walker Gait Distance 200 Other Goals - up/down 15 stairs with R rail ascending independent Days to Meet Goals 3 Frequency of Treatment Frequency Of Treatment Once a Day Treatment Plan Physical Therapy Treatment Plan Bed Mobility Training,Transfer Training,Gait Training, Therapeutic Exercise,Balance Retraining,Discharge Planning, Hot or Cold Pack,Neuromuscular Re-ed,Coordination Retraining Other Recommendations and Next Treatment trial/assess gait with SPC; Focus monitor BP; balance interventions Recommendations To Nursing Amount of Assist Needed 1 Person Assist Discharge Recommendations PT Discharge Recommendations Home with Assistance, Outpatient PT Equipment Needed for Home Before may need FWW if unsafe with Discharge SPC Transportation Needs at Discharge Private Vehicle
--- NOTE | 2019-12-26 14:31 | CM.DANOTE ---
Patient is a 79 year old female who was admitted on 12/25/19 for BP issues. Pt has MCR and [employer] for insurance and her PCP is Dr. Denisa Blackburn. EMR was reviewed. Per MD, pt to be admitted for observation for bp issues and MD initiated discussion regarding pt's current Full Code status and pt declines changing at this time but agreeable with further discussion with PCP after discharge. Per RN, pt has complained of headache but is off the drip for bp issues and was requiring 2L Oxygen but weaning to room air. Per PT, pt lives alone in [place] with Sig Other nearby and pt is independent with ADL's at baseline. Recommending safe d/c back home with assist and outpt PT. SW met briefly bedside with pt as she was very tired and could not stay awake during conversation. Pt confirms that she lives alone with 2 supportive Dtrs/DPOA in [place] and that she has been considering selling her house and moving down by her Dtrs or in with her Sig Other. Pt states her house is too big for just one person. Pt denies any hx of HH but states she went to [facility] back in 2013 after hip surgery and states her preference is to d/c home when stable. Plan: SW to follow tomorrow after further PT to confirm pt safe for d/c home with sig other assist and outpt PT. MOJGAN Perez Discharge Planning/Care Management CM Discharge Assessment Start: 12/26/19 14:29 Freq: Status: Active Protocol: Document 12/26/19 14:29 BF (Rec: 12/26/19 14:31 BF [id number]) Discharge Planning Assessment Assigned Gun Stock Maker MOJGAN Somers DPOA/Assigned Designee Name Zulay Casey Contact Information [phone] Advance Directives? Yes History Provided By Patient,Medical Record Has Patient been admitted in last 30 No days? Prior Living Arrangements House Household Members none Type of transporation used prior to Drives own vehicle admit Independent with ADL's Yes Is patient alert and oriented? Yes Needs Assistance With Home Chores / Shopping Caregiver for Another No Patient/Family Preference OP PT Therapy Comment Likely home Barriers to Discharge No Discharge Plan Home Community Services Physical Therapy Transportation Arrangement Sig other available for transport at d/c Referrals Initiated None needed Review Status In Process Please Provide Date Initial DC 12/26/19 Assessment Was Performed Next Review Type Continued Stay Review
--- NOTE | 2019-12-26 14:41 | OT.IP.EVAL ---
Current Diagnoses Essential (primary) hypertension (12/25/19) Past Medical History (Last Reviewed 12/25/19 @ 19:59 by Xavi Rhodes MD) Hypertension (Acute) Occupational Therapy Inpatient Evaluation/Re-Eval M2 OT-IP Current Condition Start: 12/26/19 14:24 Freq: Status: Active Protocol: Document 12/26/19 12:52 [facility] (Rec: 12/26/19 14:40 [facility] [id number]) Occupational Therapy Current Condition Current Condition Evaluation Date 12/26/19 Treatment Diagnosis HTN, headache. Weight Bearing Status Weight Bearing Status Weight Bear as Tolerated M3 OT- IP Subjective and Pain Start: 12/26/19 14:24 Freq: Status: Active Protocol: Document 12/26/19 12:52 [facility] (Rec: 12/26/19 14:40 [facility] [id number]) OT- Subjective Occupational Therapy Visit Type Type Initial Evaluation Visit Start Time 12:52 Visit Stop Time 13:17 Total Visit Minutes 25 Occupational Therapy Visit Comments Patient Comments Pt agreed to get up to use the bathroom. Patient/Caregiver Goals To go home. OT Pain Assessment Pain When Pain Assessed During Mobility Pain Present Pain Present Pain Reported M4 OT- IP ADL's Start: 12/26/19 14:24 Freq: Status: Active Protocol: Document 12/26/19 12:52 [facility] (Rec: 12/26/19 14:40 [facility] [id number]) OT [id number] Comments OT Self-Feeding Comments Not at meal time. OT ADL-Grooming General Evaluation Grooming Ability Standby Assistance Areas Needing Assistance Retrieving/Set-up of Grooming Items Comments OT Grooming Comments SBA with FWW at the sink. OT ADL-Oral Care General Eval Oral Care Ability Independent OT ADL-Dressing General Eval Lower Body Dressing Ability Contact Guard Assistance Comments OT Dressing Comments CGA for balance while pt able to pull up her brief. OT ADL-Toileting General Evaluation Toileting Ability Standby Assistance OT ADL-Bathing Comments OT Bathing Comments Pt too tired at this time to attempt. M5 OT- IP IADL's Start: 12/26/19 14:24 Freq: Status: Active Protocol: Document 12/26/19 12:52 [facility] (Rec: 12/26/19 14:40 [facility] [id number]) OT-Instrumental Activities of Daily Living Home Safety Awareness Ability to Problem Solve Emergency Able to Problem Solve Situations Medication Management Medication Management No Deficits Identified Money Management Money Management No Deficits Identified Meal Preparation Meal Preparation Comments Pt states mainly just doing frozen meals at this time. College President College President Comments Pt states no longer able to do the cleaning at home. Driving Driving Caregiver Provides Assist Driving Comments Pt's significant other or friends drive pt. M6 OT- IP Functional Cognition Start: 12/26/19 14:24 Freq: Status: Active Protocol: Document 12/26/19 12:52 [facility] (Rec: 12/26/19 14:40 [facility] [id number]) Cognitive Factors Limiting Selfcare Function Cognitive Ability Level of Alertness Alert Patient Orientation Name,Place,Situation Attention Span Ability Capable of Focused Attention, Capable of Sustained Attention Ability to Follow Commands Able to Follow Multi-Step Commands Cognitive Comments Cognitive Assessment Comments No deficits noted at this time , continue to assess pt's cognition. OT- Vision and Hearing OT- Hearing Assessment OT- Hearing Assessment WFL OT- Vision Assessment Visual Acuity Glasses All The Time Vision Assessment Comments Pt states has decreased depth perception and needs to have good lighting throughout the house. M7 OT- IP Mobility and Balance Start: 12/26/19 14:24 Freq: Status: Active Protocol: Document 12/26/19 12:52 [facility] (Rec: 12/26/19 14:40 [facility] [id number]) OT- Bed Mobility Assessment Sit to Supine Sit to Supine Assist Standby Assistance OT-Transfer Assessment Sit to and From Stand Sit to and from Stand Standby Assistance Transfers Transfer Ability Standby Assistance Technique Transfer Destination Bed,Chair Transfer Technique Stand Step Pivot Devices Transfer Assistive Devices Gait Belt,Front Wheeled Walker Comments Mobility Comments Pt SBA with FWW for mobility in the room. OT- Balance Assessment Sitting Balance and Reactions Static Sitting Balance Ability Normal Dynamic Sitting Balance Ability Good Standing Balance and Reactions Static Standing Balance Ability Fair M8 OT- IP Objective Assessments Start: 12/26/19 14:24 Freq: Status: Active Protocol: Document 12/26/19 12:52 [facility] (Rec: 12/26/19 14:40 [facility] [id number]) OT Gross Range of Motion Upper Extremity Range of Motion Assessment Left Impaired OT Strength Upper Extremity Strength Assessment Within Functional Limits M9 OT- IP Assessment and Plan Start: 12/26/19 14:24 Freq: Status: Active Protocol: Document 12/26/19 12:52 [facility] (Rec: 12/26/19 14:40 [facility] [id number]) OT Summary Assessment and Plan Potential Rehabilitation Potential Excellent Analytic Complexity at Evaluation Low Summary OT Impairments Grooming,Dressing,Toileting, Bathing,Toilet Transfers, Shower Transfers,Activity Tolerance Progress Towards Goals Progressing Toward Goals Assessment Summary Pt low complexity and main barrier are steps decreased activity tolerance and dynamic balance and now needing use of FWW for mobility needs. To work with pt for OT regarding suggesting equipment needs, go over energy conservation , and work on increasing for activity tolerance through ADL's. Pt would benefit from increased assist at home and even someone to stay with her pending medical progress. In addition, home health would be beneficial for pt as well. Goals Grooming Goal Independent Dressing Goal Independent Toileting Goal Independent Bathing Goal Independent Toilet Transfer Goal Independent Shower Transfer Goal Independent Patient/Caregiver Education Goal Demonstrate Energy Conservation and Pacing Days to Meet Goals 5 Frequency of Treatment Frequency Of Treatment Once a Day Treatment Plan OT Treatment Plan ADL Training,Functional Mobility,Patient/Family Education,Discharge Planning Other Treatment Recommendations and Next Shower Treatment Focus Discharge Recommendations OT Discharge Recommendations Home with Assistance,Home Health Home Equipment Needs FWW Transportation Needs at Discharge Private Vehicle
[2019-12-26] MEDS: LORazepam 0.5 MG TABLET PO ×2 (15:41→21:16)
--- NOTE | 2019-12-26 18:03 | PM.PN.1 ---
Subjective Subjective Date Patient Seen: 12/26/19 Time Patient Seen: 08:03 Interval history: Patient admitted last night from emergency room with hypertensive crisis with encephalopathy. Patient was placed on our card a Pean drip and this was weaned down and she is almost completely off this. Her blood pressures in the 150s over 70s now. She still is having headache which has been her chief complaint for the last 3 weeks. There is no clear etiology for the hypertension. Patient has longstanding hypertension and has been on metoprolol 25 mg a day which was recently started I believe and lisinopril 20 mg p.o. b.i.d. which she has been on for quite some time. She otherwise has had no other symptoms. She really is not feeling any different today despite her blood pressure coming from a systolic in the low 200s to 150 and a diastolic of 116 now to the 70s. She denies any chest pain or shortness of breath she denies any palpitations lightheadedness or dizziness Patient is well known to me Reviewed workup in the ER and admission H&P Review of systems is negative from above No fever chills Patient does have shoulder pain it has been persistent and worsening she is having neck pain as well she is having pain in the frontal area of her head Exam Vital Signs (past 8 hours): - 12/26/19 10:20 12/26/19 11:34 12/26/19 12:03 Temperature 97.0 F L Pulse Rate 68 68 65 Respiratory Rate 23 Blood Pressure 153/71 H 157/74 H Pulse Oximetry 97 12/26/19 15:15 Temperature 97.3 F L Pulse Rate 61 Respiratory Rate 18 Blood Pressure 156/70 H Pulse Oximetry 92 Oxygen Delivery Method Room Air Oxygen Flow Rate 0 Narrative Exam Narrative: Afebrile vital signs are stable blood pressures improved HEENT: Unremarkable Neck is supple she has tenderness over the trapezius muscles bilaterally at the proximal insertion in the occiputal region Chest: Clear to auscultation without wheezes rhonchi or crackles Cor: Regular rate and rhythm without murmur Abdomen: Positive bowel sounds, soft, nontender Extremities no edema pulses intact Neurologic exam nonfocal Patient clearly has degenerative arthritis shoulders ankles fingers wrists Objective Labs Result Diagrams: 12/25/19 16:12 12/26/19 04:42 Labs: Laboratory Results - last 24 hr 12/26/19 12/26/1920 04:42 07:44 10:40 Sodium 138 Potassium 3.4 D Chloride 105 Carbon Dioxide 29 BUN 15 Creatinine 0.45 L Estimated GFR > 60.0 BUN/Creatinine Ratio 33.3 H Glucose 90 Calcium 9.1 Urine Color Yellow Urine Appearance Clear Urine pH 7.0 Ur Specific [place] 1.015 Urine Protein Negative Urine Glucose (UA) Negative Urine Ketones Negative Urine Occult Blood Negative Urine Nitrate Negative Urine Bilirubin Negative Urine Urobilinogen 0.2 Ur Leukocyte Esterase Negative Urine RBC None seen Urine WBC None seen Urine Bacteria None seen Ur Culture Indicated? Cult not indicated Micro UA Comment Microscopic normal COVID-19 PCR Negative Assessment & Plan Assessment & Plan narrative: 79-year-old female admitted for hypertensive crisis with symptoms including headache. Assessment 1. Hypertensive crisis of unclear etiology now improved without evidence of end-organ damage Plan: Wean off the nicardipine Will increase metoprolol to 25 mg twice daily continue lisinopril 20 mg twice daily Will continue to monitor closely Renal ultrasound Repeat labs in a.m. Assessment 2. Headache of unclear etiology suspect musculoskeletal and tension headache Plan: PT consult Heat Tylenol as needed Give a trial of hydrocodone. Will not prescribe this long-term. Tramadol is not effective last night. Will give a trial of lorazepam for the muscle relaxant aspect. Assessment 3. Hypothyroidism stable Plan: Continue same levothyroxine Assessment 4. Depression not therapeutic Plan: Will continue on and facet own will give lorazepam as needed and will plan for outpatient psychiatric evaluation Assessment 5. History of gastritis with GERD Plan: Will continue with same Nexium Quality VTE Deep Vein Thrombosis/Pulmonary Embolism Present on Admission: No
[2019-12-26] MEDS: HYDROCODONE/ACET 5/325 TABLET 1 TAB PO (18:44)
[2019-12-26] MEDS: ROSUVASTATIN 10 MG TABLET 20 MG PO (21:10)
[2019-12-27] VITALS (9 sets, daily range): BP systolic 159–188; BP diastolic 71–83; PULSE 50–60; RESP 14–20; TEMP 35.8–36.6; O2SAT 93–96
[2019-12-27] MEDS: HYDROCODONE/ACET 5/325 TABLET 1 TAB PO ×3 (00:03→21:34)
[2019-12-27 05:51] LABS: Alanine Aminotransferase 17 IU/L (<35); Albumin 3.7 g/dL (3.5-5.0); Albumin Globulin Ratio 1.3 (1.0-2.8); Alkaline Phosphatase 86 U/L (38-126); Aspartate Aminotransferase 25 IU/L (14-36); BUN Creatinine Ratio 32.6 (6-22); Bilirubin Total 0.4 mg/dL (0.2-1.3); Blood Urea Nitrogen 15 mg/dL (7-17); Calcium 9.4 mg/dL (8.4-10.2); Carbon Dioxide 30 mmol/L (22-32); Chloride 104 mmol/L (98-107); Estimated Glomerular Filt Rate > 60.0 mL/min (>60); Globulin 2.9 g/dL (1.7-4.1); Glucose 89 mg/dL (80-110); HEMOLYSIS < 15 (0-50); Potassium 3.4 mmol/L (3.4-5.1); Sodium 139 mmol/L (137-145); Total Protein 6.6 g/dL (6.3-8.2)
[2019-12-27 05:58] LABS: Add Manual Diff / Slide Review NO; Basophils Absolute Auto 100 /uL (0-100); Eosinophils Absolute Auto 300 /uL (0-450); Eosinophils Percent Auto 4.6 % (2-4); Hematocrit 39.7 % (36-46); Hemoglobin 13.8 g/dL (12.0-16.0); Lymphocytes Absolute Auto 2100 /uL (1100-4500); Lymphocytes Percent Auto 27.9 % (25-40); Mean Corpuscular HGB Conc 34.8 % (30-36); Mean Corpuscular Hemoglobin 35.9 PG (26-34); Mean Corpuscular Volume 103.3 fL (80-100); Monocytes Absolute Auto 700 /uL (0-900); Monocytes Percent Auto 9.3 % (3-14); Neutrophils Absolute Auto 4400 /uL (1500-7000); Neutrophils Percent Auto 57.2 % (50-75); Platelet Count 225 X10^3/uL (150-400); Red Blood Cell Count 3.85 X10^6/uL (4.0-5.2); Red Cell Distribution Width 12.9 % (11.6-14.8); White Blood Cell Count 7.6 X10^3/uL (4.5-11.0)
[2019-12-27] MEDS: NEFAZODONE 100 MG TABLET 50 MG PO ×2 (09:12→21:35)
[2019-12-27] MEDS: METOPROLOL ER 25 MG TABLET PO (09:17)
[2019-12-27] MEDS: PANTOPRAZOLE 20 MG TABLET PO ×2 (09:17→21:34)
[2019-12-27] MEDS: CLOPIDOGREL 75 MG TABLET PO (09:17)
[2019-12-27] MEDS: lisinopriL 20 MG TABLET PO ×2 (09:18→21:34)
[2019-12-27] MEDS: SODIUM CHLORIDE 0.9% FLUSH 10 ML IV ×2 (09:19→21:36)
[2019-12-27] MEDS: LEVOTHYROXINE 75 MCG TABLET PO (09:21)
--- NOTE | 2019-12-27 10:38 | DI.ECHO.S_ITS ---
[facility]---------+ [facility] +---------+ : : [address] : : : : [id number] : : : : Phone: [phone]+ Echocardiogram Report + + :Name: ROBERT AN Study Date: 12/27/2019 Height: 65 in : :[facility] Weight: 146 lb : : Gender: Female BSA: 1.7 m2 : :: 1940 Age: 79 yrs BP: 163/75 mmHg: :Reason For Study: Hypertension : :Ordering Physician: Gisela : :Hospitalist Performed By: Katherine Garcia : :Referring: Dr. Denisa Blackburn : + + Interpretation Summary 1) Normal left ventricular thickness, size, wall motion, and systolic function (EF 60-65%). 2) Normal right ventricular size and function. 3) Diastolic parameters suggest a pseudonormalization pattern, consistent with probable elevated filling pressures. 4) The left atrium is severely dilated. 5) There is mild to moderate mitral regurgitation. 6) There is mild to moderate tricuspid regurgitation. 7) The right ventricular systolic pressure is estimated to be at least 38 mmHg based on an estimated right atrial pressure of 3 mm Hg. 8) Compared to the Echo done 10/12/2016, no significant change when compared visually. Procedure: A two-dimensional transthoracic echocardiogram with color flow and Doppler was performed. The study quality was technically adequate. Comparison is made with the echocardiogram of 10/12/2016. The patient was in sinus bradycardia with heart rates between 49-55 bpm during the exam. Left Ventricle: The left ventricle is normal in size and wall thickness. The ejection fraction is estimated to be 60-65%. Left ventricular systolic function is normal without focal wall motion abnormalities. Diastolic parameters suggest a pseudonormalization pattern, consistent with probable elevated filling pressures. Right Ventricle: The right ventricle is normal in size and function. Atria: The left atrium is severely dilated. The right atrium is normal in size. There is no Doppler evidence for an interatrial shunt. Mitral Valve: The mitral valve is normal in structure and function. There is mild to moderate mitral regurgitation. Aortic Valve: The aortic valve is trileaflet. The aortic valve opens well. There is no aortic valve stenosis. There is trace aortic regurgitation. Tricuspid Valve: The tricuspid valve is normal in structure and function. There is mild to moderate tricuspid regurgitation. The right ventricular systolic pressure is estimated to be at least 38 mmHg based on an estimated right atrial pressure of 3 mm Hg. Pulmonic Valve: The pulmonic valve is normal in structure and function. There is no pulmonic valvular regurgitation. Great Vessels: The aortic root is normal size. The dimensions of the ascending aorta are normal. The IVC is of normal diameter and collapses greater than 50% with a sniff. This suggests a low right atrial pressure of 3 mm Hg. Pericardium/ Pleura There is an anterior echo-free space consistent with a fat pad. There is no pleural effusion. MMode/2D Measurements & Calculations LVIDd: 4.8 cm LVOT diam: 1.9 cm LVIDs: 3.1 cm Ao root diam: 2.6 cm FS: 34.7 % Ao Arch Diam (Prox Trans): 2.7 cm EPSS: 1.1 cm IVSd: 0.73 cm LVPWd: 0.83 cm LV parikh. diameter/BSA (cm/m^2): 2.8 LV sys. diameter/BSA (cm/m^2): 1.8 LA A2 area: 32.0 cm2 RA long axis: 4.9 cm LA A4 area: 28.1 cm2 RA area: 12.6 cm2 LA length (vol): 6.6 cm RA vol: 27.7 ml LA vol: 115.4 ml RA : 16.0 ml/m2 LA vol index: 66.7 ml/m2 IVC diam: 1.6 cm RVD1 (basal): 3.2 cm TAPSE: 1.9 cm Doppler Measurements & Calculations Ao V2 max: 108.9 cm/sec LVOT Max Tj: 76.3 cm/sec Ao V2 mean: 76.1 cm/sec LV V1 max P.3 mmHg Ao max P.7 mmHg LV V1 VTI: 17.9 cm Ao mean P.6 mmHg SAMSON(I,D): 1.9 cm2 Ao V2 VTI: 28.4 cm SAMSON(V,D): 2.1 cm2 sev ratio: 0.63 SAMSON indexed to BSA (cm^2/m^2): 1.1 MV E max tj: 80.7 cm/sec TR max tj: 296.7 cm/sec MV A max tj: 59.2 cm/sec TR max P.2 mmHg MV E/A: 1.4 PA V2 max: 79.5 cm/sec Med Peak E' Tj: 3.2 cm/sec PA V2 mean: 56.1 cm/sec E/E' med: 25.5 PA mean P.4 mmHg Lat Peak E' Tj: 4.0 cm/sec E/E' lat: 20.4 E/e' average: 22.9 MV dec time: 0.23 sec MR ERO: 0.12 cm2 MR PISA: 1.9 cm2 SV(LVOT): 52.7 ml MR flow rate: 71.7 cm3/sec MR PISA radius: 0.56 cm Reading Physician:01:30 PM
--- NOTE | 2019-12-27 10:42 | PM.PN.1 ---
Subjective Subjective Date Patient Seen: 12/27/19 Time Patient Seen: 10:42 Interval history: Patient was able to sleep last night. She states that her head is feeling better she did have 1 hydrocodone last night. She is still feeling very weak and when she gets up to walk she feels dizzy. Her blood pressure has risen overnight to 150s to 170s systolic blood pressure over 70s to 80s. She is tolerating p.o. without difficulty Continues to have mild headache frontal area Denies chest pain, shortness of breath Does have dizziness and lightheadedness with motion Review of systems otherwise negative Exam Vital Signs (past 8 hours): - 12/27/19 05:00 12/27/19 07:46 12/27/19 09:17 Temperature 96.5 F L 97.7 F Pulse Rate 50 L 54 L 54 L Respiratory Rate 16 14 Blood Pressure 170/79 H 163/75 H 163/75 H Pulse Oximetry 93 93 12/27/19 09:18 Temperature Pulse Rate 54 L Respiratory Rate Blood Pressure 163/75 H Pulse Oximetry Oxygen Delivery Method Room Air Oxygen Flow Rate 0 Narrative Exam Narrative: Patient is alert and oriented x3. Afebrile Blood pressure 170/79 after just getting out of bed HEENT: Unremarkable Neck: Supple without adenopathy Chest: Clear to auscultation without wheezes rhonchi or crackles Cor: Regular rate and rhythm without murmur, distant S1-S2 Abdomen: Benign Extremities: No edema, pulses intact Tenderness to palpation over lateral trapezius bilateral Skin no rash Objective Labs Result Diagrams: 12/27/19 04:43 12/27/19 04:43 Labs: Laboratory Results - last 24 hr 12/26/19 12/27/19 12/27/19 10:40 04:43 04:43 WBC 7.6 RBC 3.85 L Hgb 13.8 Hct 39.7 MCV 103.3 H MCH 35.9 H MCHC 34.8 RDW 12.9 Plt Count 225 Neut % (Auto) 57.2 Lymph % (Auto) 27.9 [place] % (Auto) 9.3 Eos % (Auto) 4.6 H Baso % (Auto) 1.0 Neut # (Auto) 4400 Lymph # (Auto) 2100 [place] # (Auto) 700 Eos # (Auto) 300 Baso # (Auto) 100 Sodium 139 Potassium 3.4 Chloride 104 Carbon Dioxide 30 BUN 15 Creatinine 0.46 L Estimated GFR > 60.0 BUN/Creatinine Ratio 32.6 H Glucose 89 Calcium 9.4 Total Bilirubin 0.4 AST 25 ALT 17 Alkaline Phosphatase 86 Total Protein 6.6 Albumin 3.7 Globulin 2.9 Albumin/Globulin Ratio 1.3 COVID-19 PCR Negative Assessment & Plan Assessment & Plan narrative: 79-year-old female admitted for hypertensive crisis and headache. Slowly improving. Now with blood pressure elevation Plan: Will decrease metoprolol to 25 mg once a day due to bradycardia. Will start amlodipine 2.5 mg twice daily. Will continue to monitor. Echo Will discuss with cardiology. Continue on the same lisinopril Labs are normal will repeat morning. Assessment 2. GERD with history of gastritis without current symptoms Plan: Continue current proton pump inhibitor Assessment 3. Hypokalemia currently well controlled Plan: Continue to monitor Assessment number for coronary artery disease Plan: No current issues. Will continue on outpatient medications including Plavix Assessment 5. Headache suspect multifactorial primarily musculoskeletal. There is no evidence of infectious process with CT scan and sinuses negative and could be test negative Plan: Will continue with heat minimal use of hydrocodone and lorazepam Assessment 6. Deconditioning Plan: Continue with physical therapy Quality VTE Deep Vein Thrombosis/Pulmonary Embolism Present on Admission: No
--- NOTE | 2019-12-27 10:58 | PT.IPTN ---
Current Diagnoses Essential (primary) hypertension (12/25/19) Physical Therapy Treatment Note M2 PT-IP Current Condition Start: 12/26/19 10:05 Freq: NEEDED Status: Active Protocol: Document 12/26/19 12:16 AW (Rec: 12/26/19 12:40 AW [id number]) Physical Therapy Current Condition Current Condition Evaluation Date 12/26/19 Treatment Diagnosis headache, hypertensive emergency, difficulty in walking Onset Date 12/25/19 Precautions Other Precautions Monitor BP M3 PT-IP Subjective Start: 12/26/19 10:05 Freq: NEEDED Status: Active Protocol: Document 12/27/19 10:11 SP (Rec: 12/27/19 14:31 SP [id number]) Subjective Physical Therapy Visit Type Type Treatment Note Visit Start Time 10:11 Visit Stop Time 10:58 Total Visit Minutes 47 Number of COVERED BUCKLE ASSEMBLER Visits 1 Physical Therapy Visit Comments Patient Comments Pt was willing to work with PT . Patient Goals Pt hopes to return home Therapy Pain Assessment Pain Present Pain Present Denied Pain M4 PT-IP Mobility and Gait Start: 12/26/19 10:05 Freq: NEEDED Status: Active Protocol: Document 12/27/19 10:11 SP (Rec: 12/27/19 14:31 SP [id number]) PT-Bed Mobility Assessment Supine to Sit Supine to Sit Standby Assistance Scooting Scooting to Edge of Bed Standby Assistance PT-Transfer Assessment Sit to and From Stand Sit to and from Stand Standby Assistance Equipment Transfer Assistive Device Gait Belt,Front Wheeled Walker Orthotic/Prosthetic Devices or Brace: No Transfers Transfer Destination Chair,Wheelchair Transfer Technique Pt ambulated using SPC and FWW Transfer Ability Level of Assist Standby Assistance Comments Mobility Comments Pt was supine in bed when arrived. Assessed BP seated at EOB post supine to sitting SBA: 175/81. Sit to stand using SPC CGA then short distance gait using SPC L side of bed to room bench and back CGA with noted over wt shift at times but self recovery approx 20ft total, BP once seated back on EOB 182/82. After seated rest approx 5 min patient agreeable to some ambulation and assess stair mgt. Pt ambulated from R side of bed to w/c outside door approx 10 ft using FWW SBA. COVERED BUCKLE ASSEMBLER pushed patient down to stairs. Pt was able to ascend/ descend 6 stairs using B HR CGA step over step gait patterning but unable to complete 15 stairs total has at home, will need to reassess again prior to DC and recommending caregiver training with significant other stated can help her, if and when medically safe to discharge home. Pt was able to walk further distance from stairs back to room with w/c follow but not needed, 3 stopped stand rests requried for tiring recovery, Min cued for obstacle mgt and centering fWW in hallway for safety cGA , improved last 1/4 of the total 357 ft. Pt agreed would like to sit up in chair when arrived back to room with legs elevated. Pt had call light and all needs in reach before left. Dr Blackburn attended portions of tx (stairs, some gait) and was in room assessing patient before left. COVERED BUCKLE ASSEMBLER recommending patient use fWW at home at this time, patient unsure if knows where fWW she has is and wanting us to provide a FWW before leaving. Therapy recommending home with assistance and outpatient therapy to improve strength, balance and progress toward PLO functional mobility. Pt will need to complete 15 stairs and recommending caregiver training with significant other prior and for safety DC home. Gait Assessment Gait Gait Assistance Required: Standby Assistance,Contact Guard Assist Distance (Feet) 357 Able to Maintain Weight Bearing Status Yes During Gait Assistive Devices Assistive Device Straight Cane,Front Wheeled Walker Orthotic/Prosthetic Devices or Brace: No Gait Deviations General Gait Pattern Antalgic,Decreased Stride Length,Decreased Feet Clearance,Flexed Trunk,Wide Based Gait Factors Limiting Gait Function Factors Limiting Gait Function Decreased Activity Tolerance, Decreased Strength,Pain,Poor Balance,Poor Safety Awareness Comments Gait Comments See mobility comments. Stair Climbing Assessment Evaluation Level of Assist On Stairs Contact Guard Assistance,1 Person Assistance Devices Stair Climbing Assistive Devices Left Railing,Right Railing Technique/Endurance Stair Climbing Direction Ascend and Descend Stair Climbing Technique Step Over Step Number of Steps Climbed 3 Stair Climbing Set # Repetitions (reps) 2 Comments Stair Climbing Comments See mobility comments. PT-Balance Assessment Sitting Balance and Reactions Static Sitting Balance Ability Normal Dynamic Sitting Balance Ability Good Standing Balance and Reactions Static Standing Balance Ability Good Dynamic Standing Balance Ability Fair Device Used with and without FWW M5 PT-IP Objective Assessments Start: 12/26/19 10:05 Freq: NEEDED Status: Active Protocol: Document 12/26/19 12:16 AW (Rec: 12/26/19 12:40 AW [id number]) Orientation Orientation/Cognition Level of Alertness Alert Orientation Name,Day of Week,Place, Situation Language Function Ability No Deficits Noted Safety Awareness Decreased Safety Awareness Memory Description No Deficits Noted Gross Range of Motion Lower Extremity ROM Assessment Within Functional Limits Strength Lower Extremity Strength Assessment Bilaterally Impaired Hip L 4/5; R 3+/5 due to pain Knee B 4/5 Ankle B4+/5 Coordination Assessment Gross Coordination Gross Coordination WNL Sensation Assessment Sensation Gross Sensation WNL Muscle Tone Muscle Tone WNL Yes Other Assessments Other Other Assessments Occulomotor exam revealed difficulty with tracking and with convergence (left eye more affected than right). Pt denied dizziness. M6 PT-IP Treatment Start: 12/26/19 10:05 Freq: NEEDED Status: Active Protocol: Document 12/27/19 10:11 SP (Rec: 12/27/19 14:31 SP [id number]) Physical Therapy Treatment Education Education Provided Safety M7 PT-IP Assessment and Plan Start: 12/26/19 10:05 Freq: NEEDED Status: Active Protocol: Document 12/27/19 10:11 SP (Rec: 12/27/19 14:31 SP [id number]) PT Summary Assessment and Plan Potential Rehabilitation Potential Good Status of Condition at Evaluation Evolving Summary Impairments Pain,Strength,Balance,Bed Mobility,Transfers,Gait, Activity Tolerance Assessment Summary See mobility comments. Pt had elevated BP during tx, reported to nurse and Dr Blackburn during tx. See mobility comments for recommendations. Goals Bed Mobility Goal Independent Transfer Goal Independent,Cane,Front Wheeled Walker Gait Goal Independent,Cane,Front Wheel Walker Gait Distance 200 Other Goals - up/down 15 stairs with R rail ascending independent, have SPC if required for support Days to Meet Goals 3 Frequency of Treatment Frequency Of Treatment Once a Day Treatment Plan Physical Therapy Treatment Plan Bed Mobility Training,Transfer Training,Gait Training, Therapeutic Exercise,Balance Retraining,Discharge Planning, Hot or Cold Pack,Neuromuscular Re-ed,Coordination Retraining Other Recommendations and Next Treatment trial/assess gait with SPC; Focus monitor BP; balance interventions, 15 stairs RHR and SPC, caregiver training with significant other prior to DC. Recommendations To Nursing Amount of Assist Needed 1 Person Assist Discharge Recommendations PT Discharge Recommendations Home with Assistance, Outpatient PT Equipment Needed for Home Before may need FWW if unsafe with Discharge SPC Transportation Needs at Discharge Private Vehicle
[2019-12-27] MEDS: CHLORTHALIDONE 25 MG TABLET 12.5 MG PO (12:34)
--- NOTE | 2019-12-27 15:57 | OT.IPNOTE ---
Pt asleep when checking on her for OT treatment, therefore to check on her tomorrow.
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
[2019-12-27] MEDS: LORazepam 0.5 MG TABLET PO (21:34)
[2019-12-27] MEDS: ROSUVASTATIN 10 MG TABLET 20 MG PO (21:34)
[2019-12-28 01:19] VITALS: BP 167/72; PULSE 61; RESP 20; TEMP 36.3; O2SAT 98
[2019-12-28] MEDS: HYDROCODONE/ACET 5/325 TABLET 1 TAB PO (04:58)
[2019-12-28] MEDS: LEVOTHYROXINE 75 MCG TABLET PO (05:00)
[2019-12-28 05:07] LABS: Add Manual Diff / Slide Review NO; Basophils Absolute Auto 100 /uL (0-100); Eosinophils Absolute Auto 300 /uL (0-450); Eosinophils Percent Auto 4.1 % (2-4); Hematocrit 41.3 % (36-46); Hemoglobin 14.4 g/dL (12.0-16.0); Lymphocytes Absolute Auto 2400 /uL (1100-4500); Lymphocytes Percent Auto 27.9 % (25-40); Mean Corpuscular HGB Conc 34.9 % (30-36); Mean Corpuscular Hemoglobin 36.3 PG (26-34); Mean Corpuscular Volume 103.8 fL (80-100); Monocytes Absolute Auto 900 /uL (0-900); Monocytes Percent Auto 10.2 % (3-14); Neutrophils Absolute Auto 4800 /uL (1500-7000); Neutrophils Percent Auto 56.8 % (50-75); Platelet Count 227 X10^3/uL (150-400); Red Blood Cell Count 3.97 X10^6/uL (4.0-5.2); Red Cell Distribution Width 12.8 % (11.6-14.8); White Blood Cell Count 8.5 X10^3/uL (4.5-11.0)
[2019-12-28 05:17] LABS: Blood Urea Nitrogen 20 mg/dL (7-17); Calcium 9.6 mg/dL (8.4-10.2); Carbon Dioxide 31 mmol/L (22-32); Chloride 102 mmol/L (98-107); Estimated Glomerular Filt Rate > 60.0 mL/min (>60); Glucose 89 mg/dL (80-110); HEMOLYSIS < 15 (0-50); Potassium 3.8 mmol/L (3.4-5.1); Sodium 138 mmol/L (137-145)
[2019-12-28 05:28] VITALS: BP 161/78; PULSE 60; RESP 16; TEMP 36.5; O2SAT 94
[2019-12-28 08:00] VITALS: BP 144/70; PULSE 64; RESP 16; TEMP 36.3; O2SAT 94
[2019-12-28] MEDS: METOPROLOL ER 25 MG TABLET PO (08:15)
[2019-12-28] MEDS: NEFAZODONE 100 MG TABLET 50 MG PO (08:15)
[2019-12-28] MEDS: CHLORTHALIDONE 25 MG TABLET 12.5 MG PO (08:15)
[2019-12-28] MEDS: CLOPIDOGREL 75 MG TABLET PO (08:15)
[2019-12-28] MEDS: PANTOPRAZOLE 20 MG TABLET PO (08:15)
[2019-12-28] MEDS: lisinopriL 20 MG TABLET PO (08:15)
[2019-12-28] MEDS: SODIUM CHLORIDE 0.9% FLUSH 10 ML IV (08:16)
--- NOTE | 2019-12-28 08:40 | PM.DS.1 ---
History of Present Illness History of Present Illness Chief complaint: RUTHIE HIGH BLOOD PRESSURE Discharge Providers Provider Date of admission: 12/25/19 18:04 Discharge Date: 12/28/19 Primary care physician: Denisa Blackburn MD Consults: 12/26/19 08:32 Consult to Occupational Therapy Evaluate & Treat Comment: Physician Instructions: Evaluate and treat Consult to Physical Therapy Evaluate & Treat Comment: Physician Instructions: Evaluate and Treat 12/27/19 09:42 Consult to Home Health Routine Comment: blood pressure issues, weakness, SOB with excersio Reason For Exam: Set up FWW for home use at discharge 12/27/19 16:43 Consult to Physician Routine Comment: patient is aware Consulting Provider: Campos Richards Reason for consultation: medication review Has provider been notified: Yes Discharge provider: Denisa Blackburn MD Summary Hospital Course Discharge Diagnosis: Hypertensive crisis resolved Hypertension improved Headache improved Depression unchanged Coronary artery disease, no acute issues Hypothyroidism, stable Hospital Course: 40 minutes is spent in coordination of care. Discussed with Dr. Richards who suggested trial of duloxetine 30 [address] twice daily in place of the ser zone to be started approximately 1-2 weeks after discharge. Patient was admitted to the hospital with hypertensive crisis and associated headache. She was placed on a nicardipine drip and quickly weaned off that through the night on the night of hospitalization. She was restarted on her home medications which were lisinopril 20 mg twice daily and metoprolol 25 mg daily. Her blood pressure improved 150s over 70s and then the following day was up to 160s to 170s and patient was quite symptomatic with ambulation and poor exercise tolerance. She was then started on chlorthalidone and blood pressure improved and she continued to gain strength with physical therapy and was discharged home on hospital day 4. And improved condition with improved blood pressure and discharge blood pressure was 140/70. Patient had CK and troponin done which were not revealing an EKG that showed no significant change. Patient was monitored with telemetry and showed new arrhythmia. Patient's headache persisted after treatment of her blood pressure and she was given hydrocodone and lorazepam which was beneficial. She had an echo that showed no significant change. Dr. Richards was consulted and met with patient please see her note. Patient will be discharged home on her outpatient medications including chlorthalidone 12.5 mg daily and we will change to duloxetine at follow-up appointment in 1 week. Status at Discharge Cognitive/behavioral status at discharge: oriented Functional status at discharge: independent ambulation Overall status at discharge: patient is progressing back to baseline Exam Vital Signs (past 8 hours): - 12/28/19 01:19 12/28/19 05:28 12/28/19 08:00 Temperature 97.4 F L 97.7 F 97.4 F L Pulse Rate 61 60 64 Respiratory Rate 20 16 16 Blood Pressure 167/72 H 161/78 H 144/70 H Pulse Oximetry 98 94 94 Oxygen Delivery Method Room Air Oxygen Flow Rate 0 Narrative Exam Narrative: Afebrile vital signs are stable. Patient alert and oriented no apparent distress HEENT: Unremarkable Neck: Supple without adenopathy Chest: Clear to auscultation without wheezes rhonchi or crackles Cor: Regular rate and rhythm with distant S1-S2 Abdomen: Positive bowel sounds, soft, nontender, nondistended Extremities: No edema, pulses intact Neurologic exam nonfocal Objective Labs Result Diagrams: 12/28/19 04:39 12/28/19 04:39 Labs: Laboratory Results - last 24 hr 12/28/19 12/28/19 04:39 04:39 WBC 8.5 RBC 3.97 L Hgb 14.4 Hct 41.3 MCV 103.8 H MCH 36.3 H MCHC 34.9 RDW 12.8 Plt Count 227 Neut % (Auto) 56.8 Lymph % (Auto) 27.9 [place] % (Auto) 10.2 Eos % (Auto) 4.1 H Baso % (Auto) 1.0 Neut # (Auto) 4800 Lymph # (Auto) 2400 [place] # (Auto) 900 Eos # (Auto) 300 Baso # (Auto) 100 Sodium 138 Potassium 3.8 Chloride 102 Carbon Dioxide 31 BUN 20 H Creatinine 0.54 Estimated GFR > 60.0 BUN/Creatinine Ratio 37.0 H Glucose 89 Calcium 9.6 Discharge Plan Discharge Plan Patient Disposition: Home Discharge orders & Medications Prescriptions: New chlorthalidone 25 mg Tablet 12.5 mg PO DAILY Qty: 30 RF: 3 Continued potassium chloride 10 mEq Capsule, Extended Release 10 meq PO QAM RF: 0 lisinopril 20 mg tablet 20 mg PO BID RF: 0 clopidogrel [Plavix] 75 mg Tablet 75 mg PO BEDTIME RF: 0 levothyroxine 75 mcg tablet 75 mcg PO BEDTIME RF: 0 nefazodone 50 mg Tablet 50 mg PO BID RF: 0 esomeprazole magnesium [Nexium] 20 mg Capsule,Delayed Release(Dr/Ec) 20 mg PO BID RF: 0 Follow up/Referrals: Denisa Blackburn MD [Primary Care Provider] - Diet/Activity/Treatments Diet: Regular Diet comment: cardiac, low salt Activity: as tolerated Visit Report/Discharge Packet Instructions: DI for High Blood Pressure Visit Report Forms: Patient Portal/API, Stroke Signs & Symptoms Discharge Data Primary Care Provider: Denisa Blackburn Quality VTE Deep Vein Thrombosis/Pulmonary Embolism Present on Admission: No
--- NOTE | 2019-12-28 09:15 | CM.DPC ---
DCP: continued: case received, d/c order noted, EMR reviewed and then checked in with pt. Introduced self and role. Pt clarifies today that she has been staying recently with her significant other Brennan Cade and that she will be returning to his home (which is in [place].) psychiatrist Dr. Carrington Richards did see pt last evening (her consult is reviewed) at the request of Dr. Blackburn and medication changes were suggested. Dr. Blackburn is following up on the recommendations and will be seeing pt again in a week in clinic. PT is seeing pt again today, confirms she has issued pt a FWW from the Therapy consignment closet, will do some brief caregiver training with pt and Rayo when he comes in at 1130 to pick pt up. P: home today as per above
--- NOTE | 2019-12-28 10:45 | OT.IP.TRT ---
Current Diagnoses Major depressive disorder, single episode, unspecified (12/25/19) Anxiety disorder, unspecified (12/25/19) Essential (primary) hypertension (12/25/19) Occupational Therapy Treatment Note M3 OT- IP Subjective and Pain Start: 12/26/19 14:24 Freq: Status: Active Protocol: Document 12/28/19 12:44 [facility] (Rec: 12/28/19 12:53 [facility] [id number]) OT- Subjective Occupational Therapy Visit Type Type Treatment Note Visit Start Time 10:19 Visit Stop Time 10:45 Total Visit Minutes 26 Occupational Therapy Visit Comments Patient Comments Pt just completed shower with aid. Patient/Caregiver Goals To go home. OT Pain Assessment Pain When Pain Assessed At Rest Pain Present Pain Present Denied Pain M4 OT- IP ADL's Start: 12/26/19 14:24 Pt states noted that she is coughing more and not sure able to correlate if it gets any worse when she is drinking water. Nurse notified and to come and speak to pt later. Pt educated to be sure to sit upright while eating. M6 OT- IP Functional Cognition Start: 12/26/19 14:24 Freq: Status: Active Protocol: Document 12/28/19 12:44 [facility] (Rec: 12/28/19 12:53 [facility] [id number]) Cognitive Factors Limiting Selfcare Function Cognitive Comments Cognitive Assessment Comments Pt states feels a but overwhelmed and able to write out a list of things that would be helpful for the pt . Suggested for pt to get back to writing down her blood pressures, listen to music, and craft activities. In addition maybe beneficial to stay with her significant other longer and therefore to bring clothes in from her house versus trying to go back and forth. M9 OT- IP Assessment and Plan Start: 12/26/19 14:24 Freq: Status: Active Protocol: Document 12/28/19 12:44 [facility] (Rec: 12/28/19 12:53 [facility] [id number]) OT Summary Assessment and Plan Summary Assessment Summary To going home to significant other's house today. Treatment Plan OT Treatment Plan ADL Training,Functional Mobility,Patient/Family Education,Discharge Planning Discharge Recommendations OT Discharge Recommendations Home with Assistance,Home Health Home Equipment Needs FWW
--- NOTE | 2019-12-28 12:15 | PC.NURSE ---
Pt is dressed and ready for discharge home with Spouse. IV has been removed. Pt spouse is present to hear the discharge instructions. Went over d/c instructions with Pt and Spouse-discussed d/c meds, time of last dose, reviewed stroke education, provided info on new script, HTN, and Low salt diet. Pt denies further questions and states she will be following up with Dr. Blackburn on Wednesday next.
--- NOTE | 2019-12-28 12:20 | PT.IPTN ---
Current Diagnoses Major depressive disorder, single episode, unspecified (12/25/19) Anxiety disorder, unspecified (12/25/19) Essential (primary) hypertension (12/25/19) Physical Therapy Treatment Note M2 PT-IP Current Condition Start: 12/26/19 10:05 Freq: NEEDED Status: Discharge Protocol: Document 12/26/19 12:16 AW (Rec: 12/26/19 12:40 AW [id number]) Physical Therapy Current Condition Current Condition Evaluation Date 12/26/19 Treatment Diagnosis headache, hypertensive emergency, difficulty in walking Onset Date 12/25/19 Precautions Other Precautions Monitor BP M3 PT-IP Subjective Start: 12/26/19 10:05 Freq: NEEDED Status: Discharge Protocol: Document 12/28/19 11:30 SP (Rec: 12/28/19 14:42 SP [id number]) Subjective Physical Therapy Visit Type Type Treatment Note Visit Start Time 11:30 Visit Stop Time 12:20 Total Visit Minutes 50 Number of CHEF ASSISTANT Visits 2 Physical Therapy Visit Comments Patient Comments Pt willing to work with therapy. Patient Goals Pt's plan to go home with male significant other, Brennan Cade due to less stair mgt to complete and his family always home to help if needed. Therapy Pain Assessment Pain Present Pain Present Denied Pain M4 PT-IP Mobility and Gait Start: 12/26/19 10:05 Freq: NEEDED Status: Discharge Protocol: Document 12/28/19 11:30 SP (Rec: 12/28/19 14:42 SP [id number]) PT-Bed Mobility Assessment Supine to Sit Supine to Sit Standby Assistance Sit to Supine Sit to Supine Standby Assistance Scooting Scooting to Edge of Bed Standby Assistance Scooting Up and Down in Bed Standby Assistance PT-Transfer Assessment Sit to and From Stand Sit to and from Stand Standby Assistance,Use of Upper Extremities Equipment Transfer Assistive Device Gait Belt,Front Wheeled Walker Orthotic/Prosthetic Devices or Brace: No Transfers Transfer Destination Bed,Chair Transfer Technique Pt ambulated using FWW Transfer Ability Level of Assist Standby Assistance Comments Mobility Comments Pt was reclined in chair when arrived, significant other arrived midst of treatment via w/c by nursing stating I use my FWW at home to get around and my family is alway there if Brandi and I need any help , pt confirmed would be easier to manage the one step at his house and can attend with coordination of her outpatient with his here at . Pt completed sit to stand from chair. CHEF ASSISTANT adjusted dispensed FWW for home use prep DC while patient in standing SBA stable, she pivoted to chair to bed using FWW SBA, supine <> sitting and scoot up and to EOB SBA. Pt ambulated in hallway approx 50 ft and ascend/descend 1 step using fWW SBA with cuing as needed for safety positioning of FWW then second assessment with Therapist's TEST INSPECTION ENGINEER as though using R HR at wall to assimulate significant other's split level in home between 2 rooms with SBA stable. Pt did not require physical assist to ascend/descend 1 step with FWW or R HR during assessment just SBA and patient and significiant other mentioned his famiily members are always there to help if needed so therapist didn't require SO family to come in an complete caregiver training. Pt was able to ambulate using FWW sBA within room, little in hallway and to/from bathroom SBA with occasional cuing for positioning of FWW x1 each situation in bathroom and at sink x2 required uses during treatment and good follow through, stable, able to self complete sit to stand from toilet using FWW and grab bar and self hygiene of which her and significant other state is the set up at his residence with family. Pt step pivoted using FWW seated in w/c with nursing in room prep for DC before CHEF ASSISTANT left. Pt is able to go home with significant other and his family to provide SBA using FWW and recommending outpatient PT to improve strength, balance and continued stair mgt to 15 steps to work back PLOF at her home setting. Gait Assessment Gait Gait Assistance Required: Standby Assistance Distance (Feet) 50 Able to Maintain Weight Bearing Status Yes During Gait Assistive Devices Assistive Device Front Wheeled Walker Orthotic/Prosthetic Devices or Brace: No Gait Deviations General Gait Pattern Antalgic,Decreased Stride Length,Decreased Feet Clearance,Flexed Trunk,Wide Based Gait Factors Limiting Gait Function Factors Limiting Gait Function Decreased Activity Tolerance, Decreased Strength,Pain,Poor Balance,Poor Safety Awareness Comments Gait Comments see mobility. Stair Climbing Assessment Evaluation Level of Assist On Stairs Standby Assistance,1 Person Assistance Devices Stair Climbing Assistive Devices Front Wheel Walker,Right Railing Technique/Endurance Stair Climbing Direction Ascend and Descend Stair Climbing Technique Step Over Step Number of Steps Climbed 1 Stair Climbing Set # Repetitions (reps) 2 Comments Stair Climbing Comments See mobility comments. PT-Balance Assessment Sitting Balance and Reactions Static Sitting Balance Ability Normal Dynamic Sitting Balance Ability Good Standing Balance and Reactions Static Standing Balance Ability Good Dynamic Standing Balance Ability Fair Device Used with and without FWW M5 PT-IP Objective Assessments Start: 12/26/19 10:05 Freq: NEEDED Status: Discharge Protocol: Document 12/26/19 12:16 AW (Rec: 12/26/19 12:40 AW [id number]) Orientation Orientation/Cognition Level of Alertness Alert Orientation Name,Day of Week,Place, Situation Language Function Ability No Deficits Noted Safety Awareness Decreased Safety Awareness Memory Description No Deficits Noted Gross Range of Motion Lower Extremity ROM Assessment Within Functional Limits Strength Lower Extremity Strength Assessment Bilaterally Impaired Hip L 4/5; R 3+/5 due to pain Knee B 4/5 Ankle B4+/5 Coordination Assessment Gross Coordination Gross Coordination WNL Sensation Assessment Sensation Gross Sensation WNL Muscle Tone Muscle Tone WNL Yes Other Assessments Other Other Assessments Occulomotor exam revealed difficulty with tracking and with convergence (left eye more affected than right). Pt denied dizziness. M6 PT-IP Treatment Start: 12/26/19 10:05 Freq: NEEDED Status: Discharge Protocol: Document 12/28/19 11:30 SP (Rec: 12/28/19 14:42 SP [id number]) Physical Therapy Treatment Education Education Provided Safety M7 PT-IP Assessment and Plan Start: 12/26/19 10:05 Freq: NEEDED Status: Discharge Protocol: Document 12/28/19 11:30 SP (Rec: 12/28/19 14:42 SP [id number]) PT Summary Assessment and Plan Potential Rehabilitation Potential Good Status of Condition at Evaluation Evolving Summary Impairments Pain,Strength,Balance,Bed Mobility,Transfers,Gait, Activity Tolerance Assessment Summary See mobility comments. Goals Bed Mobility Goal Independent Transfer Goal Independent,Cane,Front Wheeled Walker Gait Goal Independent,Cane,Front Wheel Walker Gait Distance 200 Other Goals - up/down 15 stairs with R rail ascending independent, have SPC if required for support Days to Meet Goals 3 Frequency of Treatment Frequency Of Treatment Once a Day Treatment Plan Physical Therapy Treatment Plan Bed Mobility Training,Transfer Training,Gait Training, Therapeutic Exercise,Balance Retraining,Discharge Planning, Hot or Cold Pack,Neuromuscular Re-ed,Coordination Retraining Other Recommendations and Next Treatment Progress use of SPC toward Focus PLOF FWW at this time; monitor BP; balance interventions, 15 stairs RHR and SPC home set up/1 step RHR or FWW SO set up . Recommendations To Nursing Amount of Assist Needed Standby Assistance Discharge Recommendations PT Discharge Recommendations Home with Assistance, Outpatient PT Equipment Needed for Home Before dispensed FWW Discharge Transportation Needs at Discharge Private Vehicle
[2019-12-28 12:39] LABS: Bacteria Urine None Seen; RBC Urine None Seen (0-5/HPF); WBC Urine None Seen (0-5/HPF)
--- NOTE | 2019-12-28 12:40 | PC.NURSE ---
Pt out via w/c by RN and [employer] (for Spouse) to pov with all belongings.
[2019-12-28 12:41] LABS: Appearance Urine UA CLEAR; Bilirubin Urine UA NEGATIVE (NEGATIVE); Color Urine UA YELLOW; Glucose Urine UA NEGATIVE (Negative); Ketones Urine UA NEGATIVE (NEGATIVE); Leukocyte Esterase Urine UA NEGATIVE (NEGATIVE); Nitrite Urine UA NEGATIVE (Negative); Occult Blood Urine UA NEGATIVE (Negative); Protein Urine UA NEGATIVE (Negative); Urobilinogen Urine UA 0.2 E.U./dL (0.2)
--- NOTE | 2019-12-28 12:43 | PC.NURSE ---
Dr. Blackburn notified that U/A was sent just prior to Pt discharge.
[2019-12-28 12:48] LABS: pH Urine UA 6.5 (4.5-8.0)
[2019-12-28 12:49] LABS: Culture Indicated Urine Cult Not Indicated; Urine Comments Microscopic Normal
[2020-01-06 04:36] LABS: Aldosterone/Renin Activity Rat 7.5 (0.0-30.0)
== END 2019-12-28 12:46 | disposition home or self-care (01) | DRG 305 ==
LOC: ED 17:21 → AC 18:27 → ICU 12-26 09:05 → AC 12-27 14:41 → ICU 12-27 14:43
PROVIDERS: Admitting Provider Family Medicine; Emergency Provider Emergency Medicine; PCP Family Medicine; Referring Provider Emergency Medicine; Visit Provider Family Medicine
DX: I16.1 Hypertensive emergency (principal); R42 Dizziness and giddiness; E87.6 Hypokalemia; R51 Headache; F34.1 Dysthymic disorder; F41.9 Anxiety disorder, unspecified; F32.9 Major depressive disorder, single episode, unspecified; I25.10 Atherosclerotic heart disease of native coronary artery without angina pectoris; I10 Essential (primary) hypertension; E78.5 Hyperlipidemia, unspecified; E03.9 Hypothyroidism, unspecified; K21.9 Gastro-esophageal reflux disease without esophagitis
CPT/HCPCS: 36415; 70450; 71045; 76770; 80048; 80053; 81001; 82088; 82550; 83690; 84244; 84484; 85025; 87635; 90792; 93005; 93010; 93306; 96361; 96365; 96375; 97116; 97161; 97165; 97530; 99285

== ENCOUNTER → 2020-09-02 12:58 | Outpatient (CLI) | payer MEDICARE, SELFPAY ==
[2020-06-18 12:37] VITALS: BMI 25.0
--- NOTE | 2020-09-02 | DI.RAD.S_ITS ---
PROCEDURE: XR SHOULDER LT MIN 2V INDICATIONS: LT SHOULDER PAIN TECHNIQUE: 3 views of the shoulder were acquired. COMPARISON: None. FINDINGS: Bones: No acute fractures or dislocations. No suspicious bony lesions. Visualized ribs appear intact. Severe glenohumeral joint degenerative changes are seen including full-thickness cartilage loss, subchondral cystic changes, and mild marginal osteophyte formation. Mild degenerative changes are seen at the acromioclavicular joint Soft tissues: No suspicious soft tissue calcifications. IMPRESSION: Severe glenohumeral osteoarthrosis and mild acromioclavicular osteoarthrosis. Dictated by: Srinivas Spring M.D. on 09/02/2020 at 14:37 Approved by: Srinivas Spring M.D. on 09/02/2020 at 14:38
[2020-09-02 13:41] LABS: Add Manual Diff / Slide Review NO; Basophils Absolute Auto 100 /uL (0-100); Basophils Percent Auto 0.8 % (0-2); Eosinophils Absolute Auto 100 /uL (0-450); Eosinophils Percent Auto 1.4 % (2-4); Hematocrit 41.7 % (36-46); Hemoglobin 13.8 g/dL (12.0-16.0); Lymphocytes Absolute Auto 1800 /uL (1100-4500); Mean Corpuscular HGB Conc 33.1 % (30-36); Mean Corpuscular Hemoglobin 34.7 PG (26-34); Mean Corpuscular Volume 104.7 fL (80-100); Monocytes Absolute Auto 700 /uL (0-900); Monocytes Percent Auto 8.7 % (3-14); Neutrophils Absolute Auto 5600 /uL (1500-7000); Neutrophils Percent Auto 67.1 % (50-75); Platelet Count 289 X10^3/uL (150-400); Red Blood Cell Count 3.98 X10^6/uL (4.0-5.2); Red Cell Distribution Width 13.7 % (11.6-14.8); White Blood Cell Count 8.3 X10^3/uL (4.5-11.0)
[2020-09-02 14:15] LABS: Alanine Aminotransferase 19 IU/L (<35); Albumin 4.5 g/dL (3.5-5.0); Albumin Globulin Ratio 1.5 (1.0-2.8); Alkaline Phosphatase 112 U/L (38-126); Aspartate Aminotransferase 35 IU/L (14-36); BUN Creatinine Ratio 31.1 (6-22); Bilirubin Total 0.4 mg/dL (0.2-1.3); Blood Urea Nitrogen 23 mg/dL (7-17); Calcium 9.7 mg/dL (8.4-10.2); Carbon Dioxide 29 mmol/L (22-32); Chloride 105 mmol/L (98-107); Estimated Glomerular Filt Rate > 60.0 mL/min (>60); Glucose 83 mg/dL (80-110); HEMOLYSIS < 15 (0-50); Potassium 4.2 mmol/L (3.4-5.1); Sodium 139 mmol/L (137-145); Total Protein 7.5 g/dL (6.3-8.2)
[2020-09-02 14:18] LABS: C-Reactive Protein Quant < 0.5 mg/dL (<1.0)
[2020-09-02 14:43] LABS: TSH w/ Reflex to FT4 2.13 uIU/mL (0.47-4.68)
[2020-09-05 15:27] LABS: Cholesterol 205 mg/dL (140-199); HDL Cholesterol 75 mg/dL (40-60); LDL Cholesterol Calculated 81 mg/dL (<100); Triglycerides 246 mg/dL (35-150)
== END ==
PROVIDERS: PCP Family Medicine; Referring Provider Family Medicine; Visit Provider Family Medicine
DX: M25.512 Pain in left shoulder (principal); E78.5 Hyperlipidemia, unspecified; D75.89 Other specified diseases of blood and blood-forming organs; F41.8 Other specified anxiety disorders; I25.10 Atherosclerotic heart disease of native coronary artery without angina pectoris; I10 Essential (primary) hypertension; E03.9 Hypothyroidism, unspecified; E87.6 Hypokalemia; D64.9 Anemia, unspecified
CPT/HCPCS: 36415; 73030; 80053; 80061; 83704; 83721; 84443; 85025; 86140

== ENCOUNTER → 2020-10-02 11:21 | Outpatient (CLI) | payer MEDICARE, SELFPAY ==
[2020-06-18 12:37] VITALS: BMI 25.0
--- NOTE | 2020-10-02 | DI.CT.S_ITS ---
PROCEDURE: CT UE LT WO CON INDICATIONS: Primary osteoarthritis, left shoulder TECHNIQUE: Noncontrast 1-1.5 mm thick sections acquired from the acromioclavicular joint to the inferior scapula, with coronal and sagittal reformatting. COMPARISON: [facility], CR, XR SHOULDER LT MIN 2V, 09/02/2020, 13:33. FINDINGS: Image quality: Excellent. Bones: Severe glenohumeral degenerative joint disease with [id number] appearance, extensive subchondral cystic change and sclerosis as well as spurring. Mild to moderate AC joint degeneration. No acute fracture seen. Soft tissues: Small joint effusion. There is diffuse mild muscle atrophy. IMPRESSION: Advanced left glenohumeral degenerative joint disease. Mild to moderate acromioclavicular joint degeneration. Dictated by: Zain Hilario M.D. on 10/02/2020 at 13:08 Approved by: Zain Hilario M.D. on 10/02/2020 at 13:11
== END ==
PROVIDERS: PCP Family Medicine; Referring Provider Orthopaedic Surgery; Visit Provider Orthopaedic Surgery
DX: M19.012 Primary osteoarthritis, left shoulder (principal)
CPT/HCPCS: 73200

== ENCOUNTER → 2020-11-21 10:44 | Outpatient (CLI) | payer MEDICARE, SELFPAY ==
[2020-06-18 12:37] VITALS: BMI 25.0
[2020-11-21 13:08] LABS: Add Manual Diff / Slide Review NO; Basophils Absolute Auto 100 /uL (0-100); Basophils Percent Auto 0.7 % (0-2); Eosinophils Absolute Auto 100 /uL (0-450); Eosinophils Percent Auto 1.1 % (2-4); Hematocrit 40.9 % (36-46); Hemoglobin 13.7 g/dL (12.0-16.0); Lymphocytes Absolute Auto 1700 /uL (1100-4500); Lymphocytes Percent Auto 16.8 % (25-40); Mean Corpuscular HGB Conc 33.5 % (30-36); Mean Corpuscular Volume 104.4 fL (80-100); Monocytes Absolute Auto 1000 /uL (0-900); Monocytes Percent Auto 9.6 % (3-14); Neutrophils Absolute Auto 7200 /uL (1500-7000); Neutrophils Percent Auto 71.8 % (50-75); Platelet Count 281 X10^3/uL (150-400); Red Blood Cell Count 3.92 X10^6/uL (4.0-5.2); Red Cell Distribution Width 12.8 % (11.6-14.8); White Blood Cell Count 10.1 X10^3/uL (4.5-11.0)
[2020-11-21 13:16] LABS: Hemoglobin A1C% w Est Avg Glu 5.1 % (4.0-6.0)
[2020-11-21 13:44] LABS: BUN Creatinine Ratio 30.1 (6-22); Blood Urea Nitrogen 25 mg/dL (7-17); Calcium 10.2 mg/dL (8.4-10.2); Carbon Dioxide 24 mmol/L (22-32); Chloride 107 mmol/L (98-107); Estimated Glomerular Filt Rate > 60.0 mL/min (>60); Glucose 94 mg/dL (80-110); HEMOLYSIS < 15 (0-50); Potassium 4.7 mmol/L (3.4-5.1); Sodium 140 mmol/L (137-145)
== END ==
PROVIDERS: PCP Family Medicine; Referring Provider Orthopaedic Surgery; Visit Provider Orthopaedic Surgery
DX: M25.512 Pain in left shoulder (principal); R73.9 Hyperglycemia, unspecified; Z01.812 Encounter for preprocedural laboratory examination
CPT/HCPCS: 36415; 80048; 83036; 85025

== ENCOUNTER → 2021-05-14 12:56 | Outpatient (CLI) | payer MEDICARE, SELFPAY ==
[2020-12-19 10:43] VITALS: BMI 25.0
--- NOTE | 2021-05-14 | DI.RAD.S_ITS ---
PROCEDURE: XR KNEE LT 3V INDICATIONS: knee pain TECHNIQUE: 3 views of the knee were acquired. COMPARISON: [facility], , KNEE 3V RIGHT, 08/30/2012, 9:15. FINDINGS: Bones: No fractures or dislocations. Diffuse osteopenia. Fibrocystic change of the medial tibial plateau. Mild to moderate medial compartment joint space loss. No suspicious bony lesions. Soft tissues: No joint effusion. No suspicious soft tissue calcifications. IMPRESSION: No acute osseous abnormality. Dictated by: Delio Self M.D. on 05/14/2021 at 13:49 Approved by: Delio Self M.D. on 05/14/2021 at 13:50
--- NOTE | 2021-05-14 | DI.RAD.S_ITS ---
PROCEDURE: XR KNEE RT 3V INDICATIONS: knee pain TECHNIQUE: 3 views of the knee were acquired. COMPARISON: [facility], , KNEE 3V RIGHT, 08/30/2012, 9:15. FINDINGS: Bones: No fractures or dislocations. Diffuse osteopenia. No suspicious bony lesions. Soft tissues: No joint effusion. No suspicious soft tissue calcifications. IMPRESSION: No acute osseous abnormality. Dictated by: Delio Self M.D. on 05/14/2021 at 13:45 Approved by: Deilo Self M.D. on 05/14/2021 at 13:49
--- NOTE | 2021-05-14 | DI.RAD.S_ITS ---
PROCEDURE: XR CHEST 2V INDICATIONS: cough TECHNIQUE: 2 views of the chest were acquired. COMPARISON: [facility], , XR CHEST 1V, 12/25/2019, 15:49. FINDINGS: Surgical changes and devices: None. Lungs and pleura: No consolidation, pleural effusions or pneumothorax. Mediastinum: Retrocardiac density with air-fluid level, compatible with hiatal hernia. Heart size is normal. Bones and chest wall: No suspicious bony abnormalities. Soft tissues appear unremarkable. IMPRESSION: No acute cardiopulmonary abnormality. Dictated by: Delio Self M.D. on 05/14/2021 at 13:52 Approved by: Delio Self M.D. on 05/14/2021 at 13:53
== END ==
PROVIDERS: PCP Family Medicine; Referring Provider Family Medicine; Visit Provider Family Medicine
DX: R05.9 Cough, unspecified (principal); M25.561 Pain in right knee; M25.562 Pain in left knee
CPT/HCPCS: 71046; 73562

== ENCOUNTER → 2021-12-10 10:41 | Outpatient (CLI) | payer MEDICARE, OTHER, SELFPAY ==
[2021-05-26 11:33] VITALS: BMI 25.0
--- NOTE | 2021-12-10 | DI.CT.S_ITS ---
PROCEDURE: CT CHEST WO CON INDICATIONS: Dysphagia/Cough/GERD TECHNIQUE: Noncontrast 5 mm thick sections acquired from the pulmonary apices to the posterior costophrenic angles. 1 mm lung window, 5 mm thick coronal and sagittal and 7 mm axial MIP reformats were then acquired. For radiation dose reduction, the following was used: automated exposure control, adjustment of mA and/or kV according to patient size. COMPARISON: None. FINDINGS: Image quality: Excellent. Lungs and pleura: 3 mm fissural nodule, right lung, image 130/4, presumed to represent a benign fissural lymph node. 4 mm subpleural pulmonary nodule, left upper lobe, image 103/4. 3 mm anterior left upper lobe pulmonary nodule, image 65/4. No acute air space opacities. No pleural effusions or pneumothorax. Central and peripheral airways are patent and normal in caliber. Mediastinum: Heart size is normal. No pericardial effusion. Extensive LAD calcifications. No mediastinal adenopathy by size criteria. Thoracic aorta and central pulmonary arteries are normal in size. Esophagus is normal in caliber. Large hiatal hernia. Bones and chest wall: No suspicious bony lesions. No vertebral body compression fractures. Thoracic degenerative change. S shaped scoliotic curvature. No axillary or supraclavicular adenopathy by size criteria. Thyroid gland is unremarkable as visualized . Abdomen: Visualized upper abdominal solid organs and bowel loops appear normal in the absence of contrast. IMPRESSION: 1. No evidence acute pulmonary process. 2. Multiple small noncalcified pulmonary nodules, the largest of which measures 4 mm. Please see chart below for nodule follow-up recommendations. 3. Large hiatal hernia. 4. Severe coronary artery calcifications in the LAD distribution. Fleischner Society criteria for SOLID lung nodule followup. Nodule size (mm)Low-risk patientHigh-risk patient<6 (single or multiple)No routine followup.Optional CT at 12 months. 6-8 (single or multiple)CT at 6-12 months, then optional CT at 18-24 mo.CT at 6-12 months, then CT at 18-24 months. >8 (single)CT at 3 months, PET-CT, or biopsy. Same as for low-risk pts. >8 (multiple)CT at 3-6 months, then optional CT at 18-24 mo.CT at 3-6 months, then CT at 18-24 months. Fleischner Society criteria for SUB-SOLID lung nodule followup. Solitary pure ground-glass nodules<6 mm (ground glass or part solid)No followup needed. 6 mm or larger (ground glass)CT at 6-12 months to confirm persistence, then CT every 2 years until 5 years.6 mm or larger (part solid)CT at 3-6 months to confirm persistence, then annual CT until 5 years if unchanged and solid component remains <6 mm. Multiple sub-solid nodules<6 mmCT at 3-6 months, then CT consider at 2 & 4 years for high risk patients. [address] at 3-6 months. Subsequent management based on most suspicious lesions. Recommendations do not apply to lung cancer screening, patients with immunosuppression, or patients with known primary cancer. Dictated by: Ji Rice M.D. on 12/10/2021 at 12:54 Approved by: Ji Rice M.D. on 12/10/2021 at 13:02
--- NOTE | 2021-12-10 | DI.RAD.S_ITS ---
PROCEDURE: FL UPPER GI SERIES INDICATIONS: Dysphagia/Cough/GERD COMPARISON: [facility], CR, XR CHEST 1VW (PORTABLE), 08/29/2016, 12:28. [facility], RF, UPPER GI AIR CONTRAST WITH KUB, 06/12/2008, 11:48. FINDINGS: Very low lung volumes. . Esophagus: There is foreshortening of the esophagus. Esophageal mucosa is normal on air-contrast views without fixed stricture. Moderate mid to distal esophageal spasm. There is a large hiatal hernia containing about proximal 1/3 of the stomach. There is severe gastroesophageal reflux to the level of the thoracic inlet. Stomach: The distal stomach demonstrates decreased distensibility, probably due to lack of crystal ingestion. The visible mucosa is smooth without mucosal masses or ulcers. Pylorus and duodenal bulb appear normal in morphology. There is a prominent lobulated contrast filled duodenal diverticulum arising from the 2nd portion. Duodenal folds are otherwise normal in thickness. IMPRESSION: 1. Large, chronic hiatal hernia. 2. Severe gastroesophageal reflux. 3. Foreshortened esophagus with spasm. Dictated by: Radha Neves M.D. on 12/11/2021 at 10:43 Approved by: Radha Neves M.D. on 12/11/2021 at 10:56
== END ==
PROVIDERS: PCP Family Medicine; Referring Provider Family Medicine; Visit Provider Family Medicine
DX: R13.10 Dysphagia, unspecified (principal); K44.9 Diaphragmatic hernia without obstruction or gangrene; K21.9 Gastro-esophageal reflux disease without esophagitis; R05.9 Cough, unspecified; R91.8 Other nonspecific abnormal finding of lung field; I25.10 Atherosclerotic heart disease of native coronary artery without angina pectoris; K66.8 Other specified disorders of peritoneum
CPT/HCPCS: 71250; 74240